=== PATIENT | female | born 1940 | race Caucasian/White ===

== ENCOUNTER 2016-06-14 06:38 | Day surgery (SDC) | payer MEDICARE ==
[~2016-06-14] VITALS: Ht 167.6 cm; Wt 91.6 kg
[~2016-06-14 06:38] MED LIST: ASPI-973 PO; CARI350T PO; CeFAZolin 2 Gm/50 mL D5W IV Premix IV ONE; HYDR-3825 PO; METO-272 PO; MIRA50TA PO; MULT-1018 PO; NC8176 PO; SIMV40TA5 PO; TROS60CA4 PO; ZLP10T PO
[2016-06-14] MEDS ORDERED: fentaNYL-PF 50 mCg/mL 2 mL Inj ONE (06:39)
[2016-06-14] MEDS ORDERED: Ketamine 10 mg/mL 20 mL Inj ONE (06:39)
[2016-06-14 07:02] VITALS: BP 120/100; PULSE 78; RESP 18; O2SAT 95
[2016-06-14 07:28] VITALS: BP 118/71
[2016-06-14] MEDS: Lactated Ringer's 1,000 ML IV SCH ×2 (07:29→08:45)
[2016-06-14] MEDS ORDERED: Lactated Ringer's 500 ML IV PRN (08:14)
[2016-06-14] MEDS ORDERED: Lactated Ringer's 1,000 ML IV SCH (08:14)
--- NOTE | 2016-06-14 08:14 | PCM.HPANE ---
Patient Data Surgeon Admitting Provider: Attending Provider:Cortney Nieves MD Primary Care Physician:Veronica Arshad Other Provider:Anat Hinson Anesthesia Reason for Visit Urgency Of Urination Ht/WT & BMI Height (Feet): 5 Height (Inches): 6 Weight (Kilograms): 91.6 Body Mass Index 32.00 Allergies Coded Allergies: cyclobenzaprine (Verified Allergy, Unknown, UNKNOWN, 02/17/16) doxycycline (Verified Allergy, Unknown, UNKNOWN, 02/17/16) Past Anesthesia History Anesthesia History: Denies:: Abnormal Airway, Anesthesia Reactions, Difficult Intubation, Fam Anesthesia Reaction, Malignant Hyperthermia Diabetes History Hx Diabetes?: No MRSA MRSA: Yes (past hx of) Medications Blood Thinner: Aspirin Hypertension Medication: Yes Home Meds Incl Beta Linette: Yes Date Beta Linette Taken: Jun 14, 2016 Time Beta Linette Taken: 0600 Reported Medications Trospium Chloride ER 60 Mg Cap.er.24h60 Mg PO DAILY 06/09/16 Multivitamin (Multi Vitamin Daily)1 Each Tablet1 Each PO DAILY 30 Days Ref 0 03/31/16 Hydrocodone-Acetaminophen 7.5-325 mg 1 Each Tablet1 Tablet PO Q6H PRN For Pain Ref 0 03/24/16 Mirabegron ER (Myrbetriq)50 Mg Zybqnu56 Mg PO DAILY 02/17/16 Carisoprodol (Soma)350 Mg Ocohcz617 Mg PO QID 02/16/16 Simvastatin 40 Mg Ysjchv05 Mg PO DAILY 30 Days Ref 0 02/16/16 Metoprolol Succinate ER 50 Mg Tab.er.24h50 Mg PO BID Ref 0 TAKES 50MG IN AM; 25MG IN PM 02/16/16 Benazepril 10 Mg Ghdkku36 Mg PO DAILY 02/16/16 Aspirin 81 Mg Pilhob77 Mg PO DAILY Ref 0 02/16/16 Zolpidem (Ambien)10 Mg Rzusot71 Mg PO HS PRN For Insomnia Ref 0 02/16/16 Discontinued Reported Medications Fesoterodine ER (Toviaz)4 Mg Tablet4 Mg PO DAILY 03/31/16 History History of ENT Problems?: Yes HEENT History: Positive for:: Cataracts (R eye) Denies:: Abnormal Airway Difficult Intubation Dysphagia Sinus Problem Hx of Heart Problems?: Yes Cardiovascular History: Positive for:: Hypertension Peripheral Vascular (lower extremity) Denies:: AICD Chest Pain Congestive Heart Failure Edema Heart Murmur Irregular Heartbeat Pacemaker Thrombophlebitis Valvular Heart Disease Hx of Respiratory Problem?: No Respiratory History: Denies:: Asthma COPD Dyspnea Emphysema Oxygen Administration Pneumonia Tuberculosis Use of C-PAP Machine Use of Inhalers / NEBS Hx Neurologic Problems?: Yes Neurological History: Positive for:: Dizziness Denies:: CVA Headaches Multiple Sclerosis Parkinson's Disease Seizures TIA Hx of GI Problems?: Yes Gastrointestinal History: Positive for:: Cirrhosis Gall Bladder Disease (hx biliary colic) Denies:: Gastroesphageal Reflux Hepatitis Hx of Problems?: Yes Genitourinary History: Denies:: HX of Hemodialysis Kidney Stones Urinary Tract Infection (past hx of- recent UA clear) HX of Peritoneal Dialysis: No Other Pertinent History: Female Hx: Denies:: Currently Endometriosis Pelvic Inflammatory Problems with Breasts? Skin History: Denies:: History Skin Disorders? Pressure Ulcers Hx Musculoskeletal Problems?: Yes Musculoskeletal History: Positive for:: Back Injury (multiple back surgeries, scoliosis) Joint Replacement (right knee) Musculoskeletal Trauma (recent surgery 03/2016 for left hammertoe) Osteoarthritis Hx of Psycho/Social Problems?: Yes Psycho Social History: Positive for:: Anxiety Hx Depression (hx of) Denies:: Bipolar Disorder Suicide Attempt Hx Surgeries?: Yes (multiple back, total knee, appe, hammertoe) Hx Any Other Health Problems?: Yes Other History: Positive for:: Cancer (BCC facial) Hospitalization (Many) Denies:: Endocrine Disease Thyroid Disease History Blood Transfusions: Denies:: Blood Transfuse Reaction Blood Transfusions Hx Diabetes: No Hx Alcohol Use: YesAlcoholic Drinks Per Day: two drinks dailyHx Substance Use : No Smoking Status: Current Every Day Smoker Have You Smoked inLast 12 mo: No Stop/Bang S-Snoring: Do You Snore Loudly: No T-Tired: feel tired, fatigued: Yes O-Obsered: Observed not breath: No P-Blood Pressure: treated: Yes B- Body Mass Index > 35 kg/m2: No A- Age over 50: Yes N- Neck Large Circumference: No G- Gender Male: No CHING Total Score: 3 CHING Risk Assessment: High Risk, =/>3 Yes CHING Category 4 OutPt Procedure: Yes Risk Assessment Category Category 1A: Patient has history of documented sleep apnea, and HAS NOT received any narcotic, sedative or anesthesia administration during this stay. Category 1B: Patient has history of documented sleep apnea, and HAS received any narcotic , sedative or anesthesia administration during this stay Category 2: Patient has SUSPECTED Obstructive Sleep Apnea, and HAS received any narcotic , sedative or anesthesia administration during this stay. Category 3: Patient has SUSPECTED Obstructive Sleep Apnea and HAS NOT received narcotic, sedative or anesthesia administration during this stay. Category 4: Outpatient in Procedural Areas with known sleep apnea or who screen positive for High Risk via the STOP/BANG questionnaire. Exam Exam Vital Signs Vital Signs Date Time Temp Pulse Resp B/P Pulse Ox O2 Delivery O2 Flow Rate FiO2 06/14/16 07:28 118/71 06/14/16 07:02 36.5 78 18 120/100 95 Room Air General Appearance: Alert, Oriented X3, Cooperative, No Acute Distress HEENT/AIRWAY: MP 2 Lungs: Clear to Auscultation, Normal Air Movement Heart: Exam Unremarkable, Regular Rate/Rhythm, No Murmurs/Rubs/Gallops Meds/Labs/Diagnostics Admission Meds Current Medications Lactated Ringer's (Lr) 1,000 ml @ 120 mls/hr Q8H20M IV Last administered on 07:29; Start 06/14/16 at 05:00; Stop 06/14/16 at 13:19 Plan Impression Patient chart reviewed, patient interviewed and anesthestic plan with risks, benefits, and alternatives discussed, and informed consent obtained. NPO Status: 06/13 ASA Physical Status: ASA2 Mod Systemic Disease Anesthetic Plan: MAC Bene/Risks/Altern/Consents: Yes HP Complete Prior to Induction: Yes Justin Armendariz MD Jun 14, 2016 08:14
[2016-06-14] MEDS ORDERED: fentaNYL-PF 50 mCg/mL 2 mL Inj IVPUSH PRN (08:15)
[2016-06-14] MEDS ORDERED: EPHEDrine Sulfate 50 mg/mL Inj IVPUSH PRN (08:15)
[2016-06-14] MEDS ORDERED: HYDROmorphone 1 mg/mL Inj IVPUSH PRN (08:15)
[2016-06-14] MEDS ORDERED: Ondansetron 2 mg/mL 2 mL Inj IVPUSH PRN (08:15)
[2016-06-14] MEDS ORDERED: Dexamethasone 4 mg/mL Inj IVPUSH PRN (08:15)
[2016-06-14] MEDS ORDERED: Phenylephrine 10,000 mCg/mL Inj IVPUSH PRN (08:15)
[2016-06-14] MEDS ORDERED: MetoCLOpramide 5 mg/mL 2 mL Inj IVPUSH PRN (08:15)
[2016-06-14] MEDS ORDERED: Bupivacaine-MPF 0.5% W/EPI 30 mL Inj INFILTRATE ONE (08:44)
[2016-06-14] MEDS ORDERED: Vancomycin 1,000 mg Inj IRRIGATION ONE (08:45)
[2016-06-14] MEDS ORDERED: Gentamicin 40 mg/mL 2 mL Inj IRRIGATION ONE (08:45)
[2016-06-14 09:32] VITALS: BP 119/50; PULSE 74; RESP 16; O2SAT 95
[2016-06-14 09:49] VITALS: BP 107/81; PULSE 74; RESP 16; O2SAT 96
[2016-06-14] MEDS ORDERED: HYDROcodone-APAP 5-325 mg Tablet PO PRN (10:50)
[2016-06-14] MEDS ORDERED: Ondansetron 8 mg ODT Tablet PO PRN (10:50)
--- NOTE | 2016-06-14 12:29 | PCM.ANEP1 ---
Post Anesthesia Phase 1 PACU Phase 1 Assessment Vital Signs Vital Signs Date Time Temp Pulse Resp B/P Pulse Ox O2 Delivery O2 Flow Rate FiO2 06/14/16 09:49 74 16 107/81 96 Room Air 06/14/16 09:32 37.0 74 16 119/50 95 Room Air 06/14/16 07:28 118/71 06/14/16 07:02 36.5 78 18 120/100 95 Room Air Anesthetic Administered: MAC Level of Alertness: Awake, talking EWING's with Equal Strength: Yes Pain: No Nausea or Vomiting: No Oxygen Delivery: Nasal Cannula Lungs: Clear to Auscultation, Normal Air Movement Dermatome Level: Full Sensation Justin Armendariz MD Jun 14, 2016 12:29
--- NOTE | 2016-06-14 12:31 | PCM.ANEP2 ---
Post Anesthesia Evaluation ASA/CMS Post Anesthesia VS in Patient's Normal Range?: Yes Resp Stable; Airway Patent?: Yes CV Function & Hydration Stable: Yes Mental Status Recovered?: Yes Pain control Satisfactory?: Yes N/V Control Satisfactory?: Yes Justin Armendariz MD Jun 14, 2016 12:31
--- NOTE | 2016-06-14 23:19 | OP ---
[address] [address] OPERATIVE REPORT PATIENT: DHAVAL RAMOS : 1940 MR#: [id number] ADMIT: 06/14/2016 JOB ID: [id number] DATE OF SURGERY: 06/14/2016 SURGEON: Cortney Nieves MD PROCEDURE: Stage 1 InterStim implant to include transforaminal placement of quadripolar neuroelectrode, sacral and fluoroscopy imaging and guidance. ANESTHESIA: Local with monitored anesthesia care and IV sedation. PREOPERATIVE DIAGNOSIS(ES): Intractable urinary urgency, frequency, urge incontinence. POSTOPERATIVE DIAGNOSIS(ES): Intractable urinary urgency, frequency, urge incontinence. INDICATIONS: Patient is a 75-year-old woman with a long, complicated urinary history including intractable incontinence, urgency, frequency, urge incontinence failing numerous conservative measures and electing trial of sacral nerve modulation for her problems. PROCEDURE IN DETAIL: Appropriate informed consent was obtained, the patient was brought to the operating room. She received IV antibiotics prior to onset of procedure. She was made comfortable in the prone position. All pressure points carefully padded. Cleaned, prepped, and draped usual sterile fashion. Fluoroscope was brought in. Bony landmarks were identified. We used a half/half mixture of lidocaine/Marcaine for local anesthesia along with IV sedation for anesthesia. The finder needle was used to traverse the right-sided S3 sacral foramen. We had excellent responses with Jamie and toe indicating an S3. This finder needle was converted over to obturator introducer which allow us to placed a quadripolar electrode. Once the tines were deployed, we had good responses below the level of 1 in all four electrodes with toe and Jamie. The access sheath was removed. We created a pocket on the left side per patient's request and out below the iliac crest, again sharply and bluntly with electrocautery and local anesthesia. The distal end of the lead was tunneled into the pocket. We made our connections to the temporary extension wire and this was tunneled out contralaterally. We went through the wounds copiously with antibiotic solution and closed the wounds in layers, a layer of 2-0 Vicryl suture, layer of 4-0 Monocryl and then benzoin and Steri-Strips. Final images were taken of the lead in PA and lateral position. The patient tolerated the procedure well, was awakened, and taken back to the one-day surgery area.
== END 2016-06-14 23:59 | disposition home or self-care (01) ==
LOC: SAS 06:38
PROVIDERS: ATTEND Urology
DX: R39.15 Urgency of urination (principal); F17.210 Nicotine dependence, cigarettes, uncomplicated; I10 Essential (primary) hypertension; E78.5 Hyperlipidemia, unspecified; E66.9 Obesity, unspecified; K74.60 Unspecified cirrhosis of liver; F32.9 Major depressive disorder, single episode, unspecified; Z86.14 Personal history of Methicillin resistant Staphylococcus aureus infection; Z79.82 Long term (current) use of aspirin; Z87.440 Personal history of urinary (tract) infections; Z68.32 Body mass index [BMI] 32.0-32.9, adult; Z87.442 Personal history of urinary calculi; Z85.828 Personal history of other malignant neoplasm of skin
CPT/HCPCS: 64581; 76000; C1778; J0690; J1580; J2250; J3370; J7120

== ENCOUNTER 2016-06-23 05:38 | Day surgery (SDC) | payer MEDICARE ==
[~2016-06-23] VITALS: Ht 167.6 cm; Wt 90.4 kg
[~2016-06-23 05:38] MED LIST changes: -CeFAZolin 2 Gm/50 mL D5W IV Premix IV ONE
[2016-06-23] MEDS ORDERED: Ondansetron 2 mg/mL 2 mL Inj ONE (05:39)
[2016-06-23] MEDS ORDERED: Ketamine 10 mg/mL 20 mL Inj ONE (05:39)
[2016-06-23] MEDS ORDERED: Dexamethasone 4 mg/mL Inj ONE (05:39)
[2016-06-23] MEDS ORDERED: fentaNYL-PF 50 mCg/mL 2 mL Inj ONE (05:39)
[2016-06-23] MEDS: Lactated Ringer's 1,000 ML IV SCH ×2 (05:42→07:21)
[2016-06-23] MEDS ORDERED: CeFAZolin 2 Gm/50 mL D5W IV Premix IV ONE (06:00)
[2016-06-23 06:04] VITALS: BP 140/74; PULSE 80; RESP 17; O2SAT 95
[2016-06-23] MEDS ORDERED: Gentamicin 40 mg/mL 2 mL Inj IRRIGATION ONE (07:21)
[2016-06-23] MEDS ORDERED: Vancomycin 1,000 mg Inj IRRIGATION ONE (07:21)
[2016-06-23] MEDS ORDERED: Bupivacaine-MPF 0.5% W/EPI 30 mL Inj INFILTRATE ONE (07:21)
[2016-06-23] MEDS ORDERED: Lidocaine 1% 50 mL Inj INFILTRATE ONE (07:21)
[2016-06-23] MEDS ORDERED: Lactated Ringer's 1,000 ML IV SCH (07:46)
[2016-06-23] MEDS ORDERED: Lactated Ringer's 500 ML IV PRN (07:46)
--- NOTE | 2016-06-23 07:46 | PCM.HPANE ---
Patient Data Surgeon Admitting Provider: Attending Provider:Cortney Nieves MD Primary Care Physician:Veronica Arshad Other Provider:Anat Hinson Anesthesia Reason for Visit Urgency Of Urination Ht/WT & BMI Height (Feet): 5 Height (Inches): 6 Weight (Kilograms): 90.4 Body Mass Index 32.00 Allergies Coded Allergies: cyclobenzaprine (Verified Allergy, Unknown, UNKNOWN, 02/17/16) doxycycline (Verified Allergy, Unknown, UNKNOWN, 02/17/16) Past Anesthesia History Anesthesia History: Denies:: Abnormal Airway, Anesthesia Reactions, Difficult Intubation, Fam Anesthesia Reaction, Malignant Hyperthermia Diabetes History Hx Diabetes?: No MRSA MRSA: Yes (past hx of) Medications Blood Thinner: Aspirin Hypertension Medication: Yes Home Meds Incl Beta Linette: Yes Date Beta Linette Taken: Jun 23, 2016 Time Beta Linette Taken: 0500 Reported Medications Trospium Chloride ER 60 Mg Cap.er.24h60 Mg PO DAILY 06/09/16 Multivitamin (Multi Vitamin Daily)1 Each Tablet1 Each PO DAILY 30 Days Ref 0 03/31/16 Hydrocodone-Acetaminophen 7.5-325 mg 1 Each Tablet1 Tablet PO Q6H PRN For Pain Ref 0 03/24/16 Mirabegron ER (Myrbetriq)50 Mg Gtzzju42 Mg PO DAILY 02/17/16 Carisoprodol (Soma)350 Mg Qlsrdv937 Mg PO QID 02/16/16 Simvastatin 40 Mg Cdrsey70 Mg PO DAILY 30 Days Ref 0 02/16/16 Metoprolol Succinate ER 50 Mg Tab.er.24h50 Mg PO BID Ref 0 TAKES 50MG IN AM; 25MG IN PM 02/16/16 Benazepril 10 Mg Oseyoa53 Mg PO DAILY 02/16/16 Aspirin 81 Mg Cmnmga02 Mg PO DAILY Ref 0 02/16/16 Zolpidem (Ambien)10 Mg Iaqfoz98 Mg PO HS PRN For Insomnia Ref 0 02/16/16 History History of ENT Problems?: Yes HEENT History: Positive for:: Cataracts (R eye) Denies:: Abnormal Airway Difficult Intubation Dysphagia Sinus Problem Hx of Heart Problems?: Yes Cardiovascular History: Positive for:: Hypertension Denies:: AICD Chest Pain Congestive Heart Failure Edema Heart Murmur Irregular Heartbeat Pacemaker Thrombophlebitis Valvular Heart Disease Hx of Respiratory Problem?: No Respiratory History: Denies:: Asthma COPD Dyspnea Emphysema Oxygen Administration Pneumonia Tuberculosis Use of C-PAP Machine Hx Neurologic Problems?: Yes Neurological History: Positive for:: Dizziness Denies:: CVA Headaches Multiple Sclerosis Parkinson's Disease Seizures Hx of GI Problems?: Yes Gastrointestinal History: Positive for:: Cirrhosis Denies:: Gastroesphageal Reflux Hepatitis Hx of Problems?: Yes Genitourinary History: Denies:: HX of Hemodialysis Kidney Stones Urinary Tract Infection (past hx of- recent UA clear) HX of Peritoneal Dialysis: No Other Pertinent History: stage 1 interstim done 06/14/16 Female Hx: Denies:: Currently Endometriosis Pelvic Inflammatory Problems with Breasts? Skin History: Denies:: History Skin Disorders? Pressure Ulcers Hx Musculoskeletal Problems?: Yes Musculoskeletal History: Positive for:: Back Injury (multiple back surgeries, scoliosis) Joint Replacement (right knee) Musculoskeletal Trauma (recent surgery 03/2016 for left hammertoe) Hx of Psycho/Social Problems?: Yes Psycho Social History: Positive for:: Anxiety Hx Depression (hx of) Denies:: Bipolar Disorder Suicide Attempt Hx Surgeries?: Yes (multiple back, total knee, appe, hammertoe, stage 1 interstim) Hx Any Other Health Problems?: Yes Other History: Positive for:: Cancer (BCC facial) Hospitalization (Many) Denies:: Endocrine Disease Thyroid Disease History Blood Transfusions: Denies:: Blood Transfuse Reaction Blood Transfusions Hx Diabetes: No Hx Alcohol Use: YesHx Substance Use: No Smoking Status: Current Every Day Smoker Have You Smoked inLast 12 mo: No Stop/Bang S-Snoring: Do You Snore Loudly: No T-Tired: feel tired, fatigued: Yes O-Obsered: Observed not breath: No P-Blood Pressure: treated: Yes B- Body Mass Index > 35 kg/m2: No A- Age over 50: Yes N- Neck Large Circumference: No G- Gender Male: No CHING Total Score: 3 CHING Risk Assessment: High Risk, =/>3 Yes CHING Category 4 OutPt Procedure: Yes Risk Assessment Category Category 1A: Patient has history of documented sleep apnea, and HAS NOT received any narcotic, sedative or anesthesia administration during this stay. Category 1B: Patient has history of documented sleep apnea, and HAS received any narcotic , sedative or anesthesia administration during this stay Category 2: Patient has SUSPECTED Obstructive Sleep Apnea, and HAS received any narcotic , sedative or anesthesia administration during this stay. Category 3: Patient has SUSPECTED Obstructive Sleep Apnea and HAS NOT received narcotic, sedative or anesthesia administration during this stay. Category 4: Outpatient in Procedural Areas with known sleep apnea or who screen positive for High Risk via the STOP/BANG questionnaire. Exam Exam Vital Signs Vital Signs Date Time Temp Pulse Resp B/P Pulse Ox O2 Delivery O2 Flow Rate FiO2 06/23/16 06:04 80 17 140/74 95 Room Air General Appearance: Alert, Oriented X3, Cooperative, No Acute Distress HEENT/AIRWAY: MP 2 Lungs: Clear to Auscultation, Normal Air Movement Heart: Exam Unremarkable, Regular Rate/Rhythm, No Murmurs/Rubs/Gallops Meds/Labs/Diagnostics Admission Meds Current Medications Cefazolin Sodium/ Dextrose 2 gm/ Premix 50 ml @ 100 mls/hr PREOP ONCE IV Last administered on 06/23/16 07:21; Start 06/23/16 at 06:00; Stop 06/23/16 at 06:29; Status DC Lactated Ringer's (Lr) 1,000 ml @ 120 mls/hr Q8H20M IV Last administered on 07:21; Start 06/23/16 at 05:00; Stop 06/23/16 at 13:19 Bupivacaine HCl/ Epinephrine Bitart (Sensorcaine-MPF 0.5% W/EPI Inj) 30 ml STK- MED ONCE INFILTRATE Last administered on 06/23/16 07:21; Start 06/23/16 at 07: 21; Stop 06/23/16 at 07:41; Status DC Lidocaine HCl (Xylocaine 1% Inj) 30 ml STK-MED ONCE INFILTRATE Last administered on 06/23/16 07:21; Start 06/23/16 at 07:21; Stop 06/23/16 at 07:41 ; Status DC Gentamicin Sulfate (Gentamicin Inj) 80 mg STK-MED ONCE IRRIGATION Last administered on 06/23/16 07:21; Start 06/23/16 at 07:21; Stop 06/23/16 at 07:41 ; Status DC Vancomycin HCl (Vancocin Inj) 1,000 mg STK-MED ONCE IRRIGATION Last administered on 06/23/16 07:21; Start 06/23/16 at 07:21; Stop 06/23/16 at 07:41 ; Status DC Plan Impression Patient chart reviewed, patient interviewed and anesthestic plan with risks, benefits, and alternatives discussed, and informed consent obtained. NPO Status: 06/22/16 ASA Physical Status: ASA2 Mod Systemic Disease Anesthetic Plan: MAC Bene/Risks/Altern/Consents: Yes HP Complete Prior to Induction: Yes Justin Armendariz MD Jun 23, 2016 07:46
[2016-06-23] MEDS ORDERED: fentaNYL-PF 50 mCg/mL 2 mL Inj IVPUSH PRN (07:50)
[2016-06-23] MEDS ORDERED: Ondansetron 2 mg/mL 2 mL Inj IVPUSH PRN (07:50)
[2016-06-23] MEDS ORDERED: HYDROmorphone 1 mg/mL Inj IVPUSH PRN (07:50)
[2016-06-23] MEDS ORDERED: MetoCLOpramide 5 mg/mL 2 mL Inj IVPUSH PRN (07:50)
[2016-06-23] MEDS ORDERED: EPHEDrine Sulfate 50 mg/mL Inj IVPUSH PRN (07:50)
[2016-06-23] MEDS ORDERED: Dexamethasone 4 mg/mL Inj IVPUSH PRN (07:50)
[2016-06-23] MEDS ORDERED: Phenylephrine 10,000 mCg/mL Inj IVPUSH PRN (07:50)
[2016-06-23] MEDS ORDERED: HYDROcodone-APAP 5-325 mg Tablet PO PRN (08:05)
[2016-06-23] MEDS ORDERED: Ondansetron 8 mg ODT Tablet PO PRN (08:05)
[2016-06-23 08:07] VITALS: BP 116/59; PULSE 81; RESP 16; O2SAT 99
[2016-06-23 08:20] VITALS: BP 114/65; PULSE 76; RESP 16; O2SAT 97
[2016-06-23 08:40] VITALS: BP 116/71; PULSE 76; RESP 14; O2SAT 100
--- NOTE | 2016-06-23 11:29 | PCM.ANEP1 ---
Post Anesthesia Phase 1 PACU Phase 1 Assessment Vital Signs Vital Signs Date Time Temp Pulse Resp B/P Pulse Ox O2 Delivery O2 Flow Rate FiO2 06/23/16 08:40 76 14 116/71 100 Room Air 06/23/16 08:20 76 16 114/65 97 Room Air 06/23/16 08:07 36.7 81 16 116/59 99 Room Air 06/23/16 06:04 80 17 140/74 95 Room Air Anesthetic Administered: MAC Level of Alertness: Awake, talking EWING's with Equal Strength: Yes Pain: No Nausea or Vomiting: No Oxygen Delivery: Nasal Cannula Lungs: Clear to Auscultation, Normal Air Movement Dermatome Level: Full Sensation Justin Armendariz MD Jun 23, 2016 11:29
--- NOTE | 2016-06-23 11:29 | PCM.ANEP2 ---
Post Anesthesia Evaluation ASA/CMS Post Anesthesia VS in Patient's Normal Range?: Yes Resp Stable; Airway Patent?: Yes CV Function & Hydration Stable: Yes Mental Status Recovered?: Yes Pain control Satisfactory?: Yes N/V Control Satisfactory?: Yes Justin Armendariz MD Jun 23, 2016 11:29
--- NOTE | 2016-06-24 05:42 | OP ---
[address] [address] OPERATIVE REPORT PATIENT: DHAVAL RAMOS : 1940 MR#: [id number] ADMIT: 06/23/2016 JOB ID: [id number] DATE OF SURGERY: 06/23/2016 PROCEDURE NAME: Stage 2 InterStim implant to include IPG implantation and complex initial programming and setup of neurostimulator device. SURGEON: Cortney Nieves MD. ANESTHESIA: Local with monitored anesthesia care. PREOPERATIVE DIAGNOSIS(ES): Intractable urinary urgency, frequency, urge incontinence. POSTOPERATIVE DIAGNOSIS(ES): Intractable urinary urgency, frequency, urge incontinence. INDICATIONS: Patient is a 75-year-old woman with a longstanding history of severe urinary symptoms including urgency, frequency and urge incontinence most bothersome, failing numerous medications, behavioral changes, and conservative measures. Electing trial of InterStim therapy sacral nerve modulation. She underwent right-sided lead placement with a left pocket on June 14, 2016, and had outstanding results and near complete resolution of her urinary incontinence. It was well over a 90% improvement with one small accident during her entire trial instead of soaking numerous large pads per day. Very pleased and wished to proceed. PROCEDURE IN DETAIL: After appropriate informed consent was obtained, patient was brought to the operating room. She received IV Ancef prior to onset of procedure. She was made comfortable in the prone position. All pressure points carefully padded. Cleaned, prepped, and draped in the usual sterile fashion. Half/half mixture of lidocaine and Marcaine was used for local anesthesia. We numbed up the area overlying the left-sided buttock pocket. This was opened up sharply and bluntly with electrocautery to expose the extension wiring and the connection was undone. We cut the extension wire allowing this to fall away from the patient's body. Enlarged the pocket site sharply and bluntly with electrocautery to accept a size Medtronic 2 IPG. The pocket itself was dry. Hemostasis was achieved with electrocautery. The pocket was irrigated out copiously with antibiotic solution of vancomycin and gentamicin solution. We attached the Medtronic II pulse generator. Gentle tug revealed a good connection. A ratcheted screwdriver was used. It fit nicely inside the pocket. It was irrigated further with antibiotic solution and then closed in layers with 2-0 Vicryl, layer of 4-0 Monocryl and a layer of Dermabond. Cosmetic appearance was excellent. Fit was good. Hemostasis was fine. She was taken back to the one-day surgery area. She was awake where the device itself was turned on. Found to be operating within normal parameters. It was set up with initial rate of 14, pulse width of 210. Program zero was set up as 0 negative and 3 positive. Program two, 1 negative and 3 positive. Program three was 2 negative and 0 positive. Program four was 3 negative and 0 positive. She felt the stimulation in expected location, comfortable, low amplitude. NICANOR
== END 2016-06-23 23:59 | disposition home or self-care (01) ==
LOC: SAS 05:38
PROVIDERS: ATTEND Urology
DX: N39.41 Urge incontinence (principal); R35.0 Frequency of micturition; I10 Essential (primary) hypertension; R42 Dizziness and giddiness; F41.9 Anxiety disorder, unspecified; K74.60 Unspecified cirrhosis of liver; F17.210 Nicotine dependence, cigarettes, uncomplicated; Z79.82 Long term (current) use of aspirin; Z79.899 Other long term (current) drug therapy

== ENCOUNTER 2016-11-30 05:51 | Inpatient (IN) | payer MEDICARE ==
[2016-11-30] VITALS (17 sets, daily range): BP systolic 111–148; BP diastolic 49–87; PULSE 60–91; RESP 11–20; O2SAT 94–100
[~2016-11-30] VITALS: Ht 165.1 cm; Wt 92.5 kg
[~2016-11-30 05:51] MED LIST changes: -ASPI-973 PO; +ATOR20TA PO; +BENA20TA PO; +CILO50TA PO; +CLOB15CR3 TOP; +CeFAZolin Inj 3 GM in IV Premix IV ONE; +DIPH1TAB PO; -HYDR-3825 PO; +LEVO100T6 PO; +Levofloxacin 500 mg/100 mL D5W IV ONE; -MULT-1018 PO; -NC8176 PO; -SIMV40TA5 PO; -TROS60CA4 PO; +VENL100T3 PO
[2016-11-30] MEDS ORDERED: levoFLOXacin 500 mg/100 mL D5W Premix IV ONE (06:15)
[2016-11-30] MEDS ORDERED: CeFAZolin Inj 3 Gm/ D5W 50 mL Bag IV ONE (06:15)
[2016-11-30] MEDS: Lactated Ringer's 1,000 ML IV SCH ×3 (06:23→14:45)
[2016-11-30] MEDS ORDERED: ASPI-973 PO (07:04)
--- NOTE | 2016-11-30 07:42 | PCM.HPANE ---
Patient Data Surgeon Admitting Provider: Attending Provider:Duglas Elder MD Primary Care Physician:Veronica Arshad Other Provider:Anat Hinson Anesthesia Reason for Visit Left Renal Mass Ht/WT & BMI Height (Feet): 5 Height (Inches): 5 Weight (Kilograms): 90.4 Body Mass Index 33.00 Allergies Coded Allergies: cyclobenzaprine (Verified Allergy, Unknown, UNKNOWN, 02/17/16) doxycycline (Verified Allergy, Unknown, UNKNOWN, 02/17/16) Past Anesthesia History Anesthesia History: Denies:: Abnormal Airway, Anesthesia Reactions, Difficult Intubation, Fam Anesthesia Reaction, Malignant Hyperthermia Diabetes History Hx Diabetes?: No MRSA MRSA: Yes (past hx of) Medications Blood Thinner: Aspirin Hypertension Medication: Yes Home Meds Incl Beta Linette: Yes (METOPROLOL) Date Beta Linette Taken: Nov 29, 2016 Time Beta Linette Taken: 0700 Previous Beta Linette Dose >24: Give Dose Perioperatively Reported Medications Aspirin 81 Mg Btoxps49 Mg PO DAILY Ref 0 11/30/16 Clobetasol Propionate/Emoll (Clobetasol Emollient 0.05% Crm)15 Gm Cream..g.1 Appl TOP BID #1 TUBE 11/29/16 Diphenoxylate/Atropine 2.5-0.025 mg (Lomotil 2.5-0.025 mg)1 Each Tablet1 Tablet PO PRN For Diarrhea or Loose Stool 11/29/16 Cilostazol 50 Mg Zybodc12 Mg PO BID 11/29/16 Levothyroxine 100 Mcg Ueqfhw843 Mcg PO DAILY For Thyroid Replacement Ref 0 11/29/16 Carisoprodol (Soma)350 Mg Tablet2 Tab PO BID 11/29/16 Mirabegron ER (Myrbetriq)50 Mg Bhobns73 Mg PO DAILY 11/29/16 Metoprolol Succinate ER 50 Mg Tab.er.24h25 Mg PO QPM Ref 0 11/29/16 Metoprolol Succinate ER 50 Mg Tab.er.24h50 Mg PO QAM Ref 0 11/29/16 Atorvastatin (Lipitor)20 Mg Gquveu10 Mg PO DAILY Ref 0 11/29/16 Benazepril 20 Mg Lcscru41 Mg PO DAILY 11/29/16 Zolpidem (Ambien)10 Mg Cjznql99 Mg PO HS PRN For Insomnia Ref 0 11/29/16 Discontinued Reported Medications Venlafaxine 100 Mg Tnufpr433 Mg PO DAILY Ref 0 11/29/16 Aspirin 81 Mg Dpawkd10 Mg PO DAILY Ref 0 11/29/16 Trospium Chloride ER 60 Mg Cap.er.24h60 Mg PO DAILY 06/09/16 Multivitamin (Multi Vitamin Daily)1 Each Tablet1 Each PO DAILY 30 Days Ref 0 03/31/16 Hydrocodone-Acetaminophen 7.5-325 mg 1 Each Tablet1 Tablet PO Q6H PRN For Pain Ref 0 03/24/16 Mirabegron ER (Myrbetriq)50 Mg Cwaqtb06 Mg PO DAILY 02/17/16 Carisoprodol (Soma)350 Mg Zwwtfd632 Mg PO QID 02/16/16 Simvastatin 40 Mg Qfxvsq04 Mg PO DAILY 30 Days Ref 0 02/16/16 Metoprolol Succinate ER 50 Mg Tab.er.24h50 Mg PO BID Ref 0 TAKES 50MG IN AM; 25MG IN PM 02/16/16 Benazepril 10 Mg Mqflwy35 Mg PO DAILY 02/16/16 Aspirin 81 Mg Hmkfvv71 Mg PO DAILY Ref 0 02/16/16 Zolpidem (Ambien)10 Mg Duttjh36 Mg PO HS PRN For Insomnia Ref 0 02/16/16 History History of ENT Problems?: Yes HEENT History: Positive for:: Cataracts (R eye) Denies:: Abnormal Airway Difficult Intubation Dysphagia Glaucoma Hearing Problem Sinus Problem TMJ Denture Type: None Teeth Condition: Within Normal Limits Hx of Heart Problems?: Yes Cardiovascular History: Positive for:: Hypertension Peripheral Vascular (left femoral artery occlusion ) Denies:: AICD Abdominal Aortic Aneurism Cardiac Surgery Chest Pain Congestive Heart Failure Edema Heart Murmur Irregular Heartbeat Pacemaker Thrombophlebitis Valvular Heart Disease Hx of Respiratory Problem?: No Respiratory History: Denies:: Asthma COPD Dyspnea Emphysema Oxygen Administration Pneumonia Tuberculosis Use of C-PAP Machine Use of Inhalers / NEBS Other Resp Pertinent History: longtime smoker Hx Neurologic Problems?: No Neurological History: Denies:: CVA Dizziness Headaches Multiple Sclerosis Parkinson's Disease Seizures Hx of GI Problems?: Yes Hx of Problems?: Yes Genitourinary History: Denies:: HX of Hemodialysis Kidney Stones Urinary Tract Infection (past hx of-) HX of Peritoneal Dialysis: No Other Pertinent History: left renal mass current admission problem Female Hx: Denies:: Currently (hysterectomy) Endometriosis Pelvic Inflammatory Problems with Breasts? Skin History: Positive for:: History Skin Disorders? (hx of- takes clobetasol cream, ) Denies:: Pressure Ulcers Hx Musculoskeletal Problems?: Yes Musculoskeletal History: Positive for:: Back Injury (multiple back surgeries, scoliosis- chronic low back) Degenerative Joint Joint Replacement (right knee) Osteoarthritis Denies:: Musculoskeletal Trauma Myasthenia Gravis Systemic Lupus Hx of Psycho/Social Problems?: Yes Psycho Social History: Positive for:: Anxiety Hx Depression (hx of) Denies:: Bipolar Disorder Suicide Attempt Hx Surgeries?: Yes (multiple back, total knee, appe, hammertoe, stage 1 interstim) Hx Any Other Health Problems?: Yes Other History: Positive for:: Cancer (BCC facial) Hospitalization Denies:: Endocrine Disease Thyroid Disease History Blood Transfusions: Positive for:: Accept Blood Products? Denies:: Blood Transfuse Reaction Blood Transfusions Hx Diabetes: No Hx Alcohol Use: YesAlcoholic Drinks Per Day: 2 drinks eveningHx Substance Use : No Smoking Status: Current Every Day Smoker Have You Smoked inLast 12 mo: Yes (10 cig daily) Stop/Bang S-Snoring: Do You Snore Loudly: No T-Tired: feel tired, fatigued: Yes O-Obsered: Observed not breath: No P-Blood Pressure: treated: Yes B- Body Mass Index > 35 kg/m2: No A- Age over 50: Yes N- Neck Large Circumference: No G- Gender Male: No CHING Total Score: 3 CHING Risk Assessment: High Risk, =/>3 Yes Risk Assessment Category Category 1A: Patient has history of documented sleep apnea, and HAS NOT received any narcotic, sedative or anesthesia administration during this stay. Category 1B: Patient has history of documented sleep apnea, and HAS received any narcotic , sedative or anesthesia administration during this stay Category 2: Patient has SUSPECTED Obstructive Sleep Apnea, and HAS received any narcotic , sedative or anesthesia administration during this stay. Category 3: Patient has SUSPECTED Obstructive Sleep Apnea and HAS NOT received narcotic, sedative or anesthesia administration during this stay. Category 4: Outpatient in Procedural Areas with known sleep apnea or who screen positive for High Risk via the STOP/BANG questionnaire. Exam Exam Vital Signs Vital Signs Date Time Temp Pulse Resp B/P Pulse Ox O2 Delivery O2 Flow Rate FiO2 11/30/16 06:37 36.4 87 16 126/73 94 Room Air General Appearance: Alert, Oriented X3, Cooperative, No Acute Distress HEENT/AIRWAY: MP 3 Lungs: Clear to Auscultation, Normal Air Movement Heart: Exam Unremarkable, Regular Rate/Rhythm, No Murmurs/Rubs/Gallops Meds/Labs/Diagnostics Admission Meds Current Medications Lactated Ringer's (Lr) 1,000 ml @ 120 mls/hr Q8H20M IV Last administered on t 06:23; Start 11/30/16 at 05:00; Stop 11/30/16 at 13:19 Plan Impression Patient chart reviewed, patient interviewed and anesthestic plan with risks, benefits, and alternatives discussed, and informed consent obtained. NPO per Anesth. Guidelines: Yes ASA Physical Status: ASA3 Severe Disease Anesthetic Support Modalities: Arterial Line Anesthetic Plan: GA Bene/Risks/Altern/Consents: Yes HP Complete Prior to Induction: Yes Tong Dickinson MD Nov 30, 2016 07:04
[2016-11-30] MEDS ORDERED: Lactated Ringer's 1,000 ML IV SCH (07:48)
[2016-11-30] MEDS ORDERED: Lactated Ringer's 500 ML IV PRN (07:48)
[2016-11-30] MEDS ORDERED: EPHEDrine Sulfate 50 mg/mL Inj IVPUSH PRN (07:50)
[2016-11-30] MEDS ORDERED: Phenylephrine 10,000 mCg/mL Inj IVPUSH PRN (07:50)
[2016-11-30] MEDS ORDERED: Atropine 0.4 mg/mL Inj IVPUSH PRN (07:50)
[2016-11-30] MEDS ORDERED: Labetalol 5 mg/mL 4 mL Inj IV PRN (07:50)
[2016-11-30] MEDS ORDERED: Ondansetron 2 mg/mL 2 mL Inj IVPUSH PRN ×2 (07:50→16:15)
[2016-11-30] MEDS ORDERED: MetoCLOpramide 5 mg/mL 2 mL Inj IVPUSH PRN ×2 (07:50→16:15)
[2016-11-30] MEDS: CeFAZolin 2 Gm/50 mL D5W Duplex Bag IV ONE ×2 (08:24→12:22)
[2016-11-30] MEDS ORDERED: Bupivacaine-MPF 0.5% 30 mL Inj INFILTRATE ONE (09:20)
[2016-11-30 11:07] LABS: APPEARANCE,URINE HAZY (CLEAR,HAZY); COLOR,URINE YELLOW (YELLOW); OCCULT BLOOD,URINE NEGATIVE (NEGATIVE); PH,URINE 6.5 (5.0-8.0); UROBILINOGEN,URINE NORMAL (NORMAL)
--- NOTE | 2016-11-30 13:29 | ABG ---
DateTimeAnalyzed 13:21:01 -_ pH ____7.307 - 7.350 7.450 pCO2 ___49.1__ -mmHg 35.0 45.0 pO2 ___98.9__ -mmHg 69.0 116 HCO3- ___24.5__ -mmol/L 22.0 26.0 ABE ___-1.8__ -mmol/L tHb ___12.3__ -g/dL O2Hb ___94.6__ -% COHb ____2.6__ -% 1.5 MetHb ____0.3__ -% sO2 ___97.5__ -% FIO2 ___50.0__ -% Drawn By anesthesia - Date/Time Notified____ 13:28:00 -_ Oxygen Device 1 VENTILATOR - K+ ____3.9__ -mmol/L tO2 ___16.5__ -Vol%
[2016-11-30] MEDS ORDERED: Lactated Ringer's 1,000 ML IV ONE (14:44)
[2016-11-30] MEDS ORDERED: Bupivacaine-MPF 0.25%/EPI 30 mL Inj INFILTRATE ONE (15:09)
[2016-11-30] MEDS: fentaNYL-PF 50 mCg/mL 2 mL Inj IVPUSH PRN ×3 (15:55→16:08)
--- NOTE | 2016-11-30 16:00 | PCM.SURGPO ---
Immediate Operative Note Date of Surgery: Nov 30, 2016 Pre Operative Diagnosis L renal mass Post Operative Diagnosis L renal mass Procedure L laparoscopic radical nephrectomy (modifier 22) Surgeon and [employer] Surgeon: Duglas Elder MD Assistants: Cortney Nieves MD; Coleen Alvarez Findings No evidence for gross extension of tumor outside of L kidney was seen. L laparoscopic radical nephrectomy (including L adrenalectomy) was performed. Of note, dissection was very difficult secondary to large amount of significant adhesions from prior abdominal surgeries. Complications There were no periprocedural complications identified. Surgical Specimen Removed: Yes Specimen sent to Pathology: Yes Surgical Specimen description: L kidney and L adrenal gland Anesthetic Administered: GA Grafts, Implants: Other (16F Coles catheter to straight drainage) Output, Estimated Blood Loss: 300 Blood Admin during surgery: No Additional information Patient to be transferred to [facility] bed when stable. Duglas Elder MD Nov 30, 2016 16:00
--- NOTE | 2016-11-30 16:17 | PCM.CHPMED ---
Subjective Date of Service: Nov 30, 2016 Primary Physician: Admitting Physician: Primary Care Physician: Veronica Arshad Attending Physician: Duglas Elder MD Chief Complaint: Chief Complaint: Radical Nephrectomy History of Present Illness: 76-year-old female with history hypertension, hypoactive thyroid, chronic UTI, urge incontinence and left renal mass who underwent laparoscopic left nephrectomy and adrenalectomy today (11/30/16). There were no perisurgical complications noted by Dr. Elder. Suggested history of COPD and cirrhosis. Medicine was consulted for medical management while the patient is here in the hospital. The patient has been seen by Dr. Elder for 7 cm mass on the superior pole of the left kidney with no evidence of no metastases as noted on October 26 CT scan. Patient has a history of peripheral vascular disease and smoking, especially wishes to quit smoking as recently as 10/31/16. At that time the patient on Wellbutrin but did not start it. Patient apparently also has a significant history of alcohol use and CT in October suggested cirrhosis. Patient was unable to give history due to somnolence from medications and postop. Patient was transported to PACU in stable condition was currently being transported to the floor. Patient is a 5L of LR. Patient also had a UA which is sent for culture. Blood work pending Review of Systems: Complete review of systems performed; pertinent positives and negatives per HPI. PMH Past Medical History Left renal mass Nicotine dependence HTN Hypothyroidism Scoliosis Basal cell carcinoma Chronic UTI Hyperlipidemia COPD DJD Peripheral artery disease Hx Any Other Health Problems?: YesHx Diabetes: No Surgical History Back surgeries x5 Reports: Hysterectomy, Tonsillectomy Reports: Knee replacement Bladder sling Hysterectomy Laparoscopic appendectomy [facility] left Home Medications Atorvastatin 20 mg tablet daily Benazepril 20 mg Carisoprodol 350 mg tablet Cilostrazol 50 mg tablet Estradiol 1 mg tablet Lomotil 2.5 mg tablet Levothyroxine 100 g tablet Macrodantin 50 mg Myrbetriq 25 mg Metoprolol titrate 25 mg Venlafaxine 150 mg capsule Ambien 10 mg tablet Allergies: Coded Allergies: cyclobenzaprine (Verified Allergy, Unknown, UNKNOWN, 02/17/16) doxycycline (Verified Allergy, Unknown, UNKNOWN, 02/17/16) Family History Family History Father: ; hypertension Mother: Social History Hx Alcohol Use: YesAlcoholic Drinks Per Day: 2 drinks evening Hx Substance Use: NoHx Tobacco Use: Yes (pack/day for 30 years) Smoking Status: Current Every Day Smoker Exam Vital Signs Vital Sign - Last Date Time Temp Pulse Resp B/P Pulse Ox O2 Delivery O2 Flow Rate FiO2 11/30/16 16:09 84 12 127/72 100 Simple Mask 6 11/30/16 15:45 36.2 General: No Acute Distress, Other (somnolent) Eyes: PERRLA, Scleral Anicteric Mouth: Mucous Membranes Dry Chest & Lungs: Chest Wall Normal, Clear to auscultation & percussion Cardiovascular: Exam Unremarkable, Regular Rate/Rhythm Abdomen: Tender, Distended Musculoskeletal: Unremarkable Skin: Other (no rashes) Neurological: Other (somnolent) Lab and Diagnostics X-Rays, CTs and MRIs CT 10/26/2016 1. No change in left superior pole renal cell carcinoma. No evidence of regional teresa metastasis neurovascular invasion. 2. Cholelithiasis. 3. No change in small hepatic hypodensities. Previously described wedge-shaped hypodense focus within the right hepatic lobe posteromedially is less apparent. 4. Findings suggestive of cirrhosis. Dictated by: Julián Horn M.D. on 10/26/2016 at 14:50 12-lead ECG Pending Assessment & Plan Assessment 76-year-old female with multiple comorbidities is being admitted to the [facility] post left nephrectomy for 7 cm left renal mass. Laparoscopic nephrectomy and adrenalectomy of left renal mass; present admission ; ongoing -Patient underwent nephrectomy by Dr. Elder today; no evidence of additional invasion per surgical note -Pain control with JOINT CUTTER MACHINE -Await pathology -EKG and blood work pending -Chest x-ray tomorrow Peripheral vascular disease; present on admission; stable -Hold Cilostazol tonight; restart tomorrow Hypertension; present admission; ongoing -Continue metoprolol; if persistent hypertension consider starting lisinopril Hypothyroidism; present admission; stable -Continued levothyroxine 100 g Nicotine dependence; present admission; ongoing -From what I can tell, the patient is a current smoker -Nicotine patch tomorrow Questionable EtOH abuse; present on admission; ongoing -Difficult to get a sense of alcohol use as patient is somnolent post-op -CT evidence of cirrhosis -Watch for signs of withdrawal and initiate CIWA if present Chronic UTI; present on admission; ongoing -Patient has numerous UTIs due to contractile bladder -UA was sent for culture -Will assess for systemic infection start antibiotics if necessary Hyperlipidemia; stable -Continue home statin COPD; present medicine; stable -Patient has not wheezing, and saturating well on room air -Continue to follow and use duonebs if appropriate DJD -Continue home pain regimen once JOINT CUTTER MACHINE is dc'd Depression/anxiety; present admission; ongoing -Continue venlafaxine Urinary incontinence; stable -Continue Myrbetriq Disposition: Patient be admitted to the [facility] under inpatient status with length of stay greater than 2 minutes due to severity of presentation, duration of treatment, and risk of adverse events. Problems: Pain Evaluation: Adequate Pain Control GI Prophylaxis: H2 nicolas VTE Prophylaxis: Sub-Q Enoxaparin Resuscitation Status: CPR: Attempt Resuscitation Attending Statement I have seen this patient and reviewed the PMH, physical exam, laboratories and diagnostics, assessment and plan, no revisions at this time. Patient was much more awake than reported for me. She was relatively lucid/ coherent I was able to find an EKG from 02/2016 sinus rhythm without no acute ST segment changes. Hospitalist service will continue to follow for medical complications and medical issues. Diet and pain management and medications per urology thank you very much. Tong Garcia DO Nov 30, 2016 16:17 Javier Padron MD Nov 30, 2016 21:05
[2016-11-30] MEDS: HYDROmorphone 1 mg/mL Inj IVPUSH PRN ×5 (16:18→17:06)
[2016-11-30] MEDS ORDERED: Polyethylene Glycol (PEG) 17 Gm Powder PO PRN (16:25)
[2016-11-30] MEDS ORDERED: oxyCODONE-Acetamin 5-325 mg Tablet PO PRN (16:25)
--- NOTE | 2016-11-30 16:32 | PCM.ANEP1 ---
Post Anesthesia PACU Phase 1 Assessment Vital Signs Vital Signs Date Time Temp Pulse Resp B/P Pulse Ox O2 Delivery O2 Flow Rate FiO2 11/30/16 16:26 86 13 135/81 96 Nasal Cannula 3 11/30/16 16:16 81 17 133/65 97 Nasal Cannula 3 11/30/16 16:09 84 12 127/72 100 Simple Mask 6 11/30/16 16:00 77 15 111/65 100 Simple Mask 6 11/30/16 15:55 63 14 112/67 99 Simple Mask 9 11/30/16 15:45 36.2 60 14 130/49 99 Simple Mask 9 Anesthetic Administered: GA Level of Alertness: Awake, talking EWING's with Equal Strength: Yes Pain: No Nausea or Vomiting: No CV Function & Hydration Stable: Yes Airway Device: Endotrachial Tube Oxygen Delivery: Simple Mask Lungs: Clear to Auscultation, Normal Air Movement PACU Phase 2 Assessment Complications: No Follow up Care: N/A Patient Instructions Provided: N/A Tong Dickinson MD Nov 30, 2016 16:31
--- NOTE | 2016-11-30 17:30 | NUR ---
Admission patient arrived to [facility] room 1008 at 1720hrs. assumed care.
[2016-11-30] MEDS ORDERED: Glycopyrrolate 0.2 MG/ML 1mL Inj ONE (17:44)
[2016-11-30] MEDS ORDERED: Ketamine 10 mg/mL 20 mL Inj ONE (17:44)
[2016-11-30] MEDS ORDERED: Ondansetron 2 mg/mL 2 mL Inj ONE (17:44)
[2016-11-30] MEDS ORDERED: Phenylephrine 10,000 mCg/mL Inj ONE (17:44)
[2016-11-30] MEDS ORDERED: Propofol 10 mg/mL 20 mL Inj ONE ×2 (17:44)
[2016-11-30] MEDS ORDERED: Rocuronium 10 mg/mL 5 mL Inj ONE ×2 (17:44)
[2016-11-30] MEDS ORDERED: MeTOProlol 1 mg/mL 5 mL Inj ONE (17:44)
[2016-11-30] MEDS ORDERED: Succinylcholine Chloride 20 mg/mL 5 mL Inj ONE (17:44)
[2016-11-30] MEDS ORDERED: Neostigmine 1 mg/mL 10 mL Inj ONE (17:44)
[2016-11-30] MEDS ORDERED: fentaNYL-PF 50 mCg/mL 2 mL Inj ONE (17:44)
[2016-11-30] MEDS ORDERED: HYDROmorphone 1 mg/mL Inj ONE (17:44)
[2016-11-30] MEDS: 0.9% Sodium Chloride 1,000 ML IV SCH (17:52)
[2016-11-30] MEDS: Morphine PCA 1 mg/mL 30 mL Inj IV PRN (17:52)
[2016-11-30] MEDS: CeFAZolin Inj 2 GM in IV Premix 1 EACH IV SCH (20:36)
[2016-12-01] VITALS (10 sets, daily range): BP systolic 123–131; BP diastolic 72–75; PULSE 99–128; RESP 16–18; O2SAT 91–97
[2016-12-01] MEDS: 0.9% Sodium Chloride 1,000 ML IV SCH ×4 (00:52→19:16)
[2016-12-01] MEDS: CeFAZolin Inj 2 GM in IV Premix 1 EACH IV SCH (00:53)
--- NOTE | 2016-12-01 02:42 | NUR ---
Pain pain well controlled by LEGAL RESEARCH ANALYST when patient awake and remembers quite drowsy and confused on first assess but eventually cleared up
[2016-12-01 05:23] LABS: BASOPHILS % (AUTO) 0.1 % (0-3); EOSINOPHILS % (AUTO) 0.5 % (0-5); MONOCYTES % (AUTO) 12.8 % (4-12); Mean Corpuscular Hemoglobin 32.8 pg (27.0-35.0); Mean Corpuscular Volume 102.2 fL (81-100); NEUTROPHILS % (AUTO) 70.6 % (40-74); Platelet Count 125 bil/L (150-400)
[2016-12-01] MEDS ORDERED: CeFAZolin 2 Gm/50 mL D5W IV Premix IV ONE (06:00)
[2016-12-01 06:15] LABS: Magnesium 1.8 mg/dL (1.6-2.6); Phosphorus 3.1 mg/dL (2.5-4.9)
--- NOTE | 2016-12-01 07:19 | PCM.PNSURG ---
Subjective Date of Service: Dec 01, 2016 Date of Service: Dec 01, 2016 Subjective: Patient reports abdominal incisional pain and chronic back pain (relieved by IV ROLL HAND), tolerating small amount of clears, no nausea or vomiting, has not passed flatus or had a BM yet. no shortness of breath. Patient has not been OOB yet. Objective Vital Sign- Last 8 Hours Date Time Temp Pulse Resp B/P Pulse Ox O2 Delivery O2 Flow Rate FiO2 12/01/16 06:31 18 96 12/01/16 05:24 36.6 99 18 131/72 96 Nasal Cannula 2.00 12/01/16 03:14 18 96 12/01/16 00:32 36.6 103 18 123/75 96 Nasal Cannula 2.00 Intake and Output- Last 8 Hour 12/01/16 Cumulative From/Thru 07:00 11/29/16 10:36 - 12/01/16 06:33 Intake Total 1746 ml 5296 ml Output Total 400 ml 1100 ml Balance 1346 ml 4196 ml Intake Oral 200 ml 200 ml IV Total 1546 ml 5096 ml Output Urine Total 400 ml 500 ml Estimated Blood Loss 600 ml # Bowel Movements 0 0 Coles urine output: 400ml last 8hr. shift General: Alert, Oriented X3, Cooperative, No Acute Distress Neck: Supple Lungs: Normal Air Movement Abdomen: Other (soft, mildly distended, appropriately tender, no masses, no rebound or guarding) SURGICAL WOUND : Wound Location/Description Dressings clean/dry/intact Extremities: Other (+SCD boots) Neuro: Normal Speech, Sensation Intact Catheters: Urethral 2 Way Coles (in place, draining clear yellow urine) Result Diagram: 12/01/16 0450 12/01/16 0450 Assessment & Plan Impression POD #1, s/p L laparoscopic radical nephrectomy, afebrile, hemodynamically stable , with good urine output, with labs this AM showing Hct mildly decreased to 33.0 and normal Cr Problems: Plan Continue clears Continue IV ROLL HAND, PO pain meds PRN Continue IVF Continue Coles to straight drainage until patient is ambulatory Encourage incentive spirometry 10x/hr. and cough and deep breathing Q2h while awake Encourage OOB to chair and ambulation with assistance. Physical therapy consultation requested. Check labs (CBC, BMP) in AM Recommend holding any blood-thinning medications (including ASA) Hospitalist consultation appreciated Urologist on-call Dr. Underwood to follow over the weekend VTE Prophylaxis: SCDs Resuscitation Status: CPR: Attempt Resuscitation Duglas Elder MD Dec 01, 2016 07:19
[2016-12-01] MEDS: MYRBETRIC 50 MG PO SCH (08:30)
[2016-12-01] MEDS ORDERED: MeTOProlol XL 50 mg ER24 Tablet PO SCH ×2 (08:30)
[2016-12-01] MEDS: Morphine PCA 1 mg/mL 30 mL Inj IV PRN (10:30)
--- NOTE | 2016-12-01 14:15 | NUR ---
Activity/Mentation DISEASE CASE MANAGER RN in room when RN entered. Patient was sitting in chair and unable to tell either of us how she got there. She did state the DISEASE CASE MANAGER RN helped her, but the DISEASE CASE MANAGER RN, Yvette, denied this. DISEASE CASE MANAGER RN and RN helped patient back into bed, 2 assist with walker, tolerated okay. States her L knee hurt and she does not understand why. Patient instructed that she is not allowed to get out of bed without help. Patient able to state where she is and what is going on. [place] bed alarm is on, lights turned on in room. Call light given to patient.
--- NOTE | 2016-12-01 15:04 | OP ---
[address] [address] OPERATIVE REPORT PATIENT: DHAVAL RAMOS : 1940 MR#: [id number] ADMIT: 11/30/2016 JOB ID: [id number] DATE OF SURGERY: 11/30/2016 PREOPERATIVE DIAGNOSIS(ES): Left renal mass. POSTOPERATIVE DIAGNOSIS(ES): Left renal mass. PROCEDURES: Left laparoscopic radical nephrectomy (modifier 22). SURGEON: Duglas Elder MD LABORATORY SECRETARY: Cortney Nieves MD, ELIZABETH Ricks. ANESTHESIA: General endotracheal anesthesia. IV FLUIDS: 3300 mL. ESTIMATED BLOOD LOSS: 300 mL. URINE OUTPUT: 200 mL. SPECIMENS: Left kidney and left adrenal gland. DRAINS: A 16-Nepali Coles catheter to straight drainage. COMPLICATIONS: None. CONDITION: Stable. FINDINGS: No evidence for gross extension of tumor outside of left kidney was seen. Left laparoscopic radical nephrectomy (including left adrenalectomy) was performed. Of note, dissection was very difficult secondary to a large amount of significant adhesions from prior abdominal surgeries. INDICATIONS: The patient is a 76-year-old female with a left renal mass, with CT scan on October 26, 2016, showing a 70 mm enhancing left upper pole renal mass highly suspicious for renal cell carcinoma. The patient now presents for left laparoscopic radical nephrectomy. Of note, the skilled assistance of Dr. Cortney Nieves and ELIZABETH Ricks was necessary for the successful completion of this case. Dr. Nieves for was essential for proper visualization during the case and ELIZABETH Alvarez was essential for proper visualization and for wound closure during the case. Of note, ELIZABETH Alvarez assisted me during the initial and the latter portion of the case, and Dr. Nieves assisted me during the mid portion of the case. DESCRIPTION OF PROCEDURE: The patient was brought to the operating room and placed supine on the operating room table. The patient was given Ancef and Levaquin IV antibiotics. Sequential compression device boots were placed. The patient underwent general endotracheal anesthesia. A 16-Nepali Coles catheter was placed through the urethra and into the bladder under sterile conditions without difficulty and Coles catheter was placed to straight drainage. The patient had orogastric tube placement by anesthesia. The patient was placed in modified lateral decubitus position, left side up. All pressure points were padded. The patient was secured to the table with 3-inch cloth tape. The patient's left flank and left abdomen were prepped and draped in standard surgical fashion. A Tracey trocar placement was performed. A 12 mm incision in the left abdomen at the level of the umbilicus, just lateral to the edge of the rectus muscle, was made through the skin sharply. The incision was carried through subcutaneous tissue using Bovie electrocautery. The fascia was identified and incised sharply then 0-Vicryl sutures were placed, one on each side of the fascia, as holding sutures. The muscle layer was split. The peritoneum was identified and grasped with clamps, one on each side, and the peritoneum was carefully incised sharply using Metzenbaum scissors. Access to the peritoneum was obtained. A blunt-tip Tracey trocar was placed into the peritoneal cavity. The abdomen was insufflated with 15 mm hg carbon dioxide. Four-quadrant insufflation was seen. The abdomen was inspected and there was no evidence of injury to the abdominal contents. At this port a 12 mm trocar was placed in the left abdomen, lateral to the first trocar. A 12 mm trocar was placed in the left upper quadrant, superior to the first trocar. With all trocars placed, and insufflation to 15 mmHg carbon dioxide obtained, the table was airplaned towards the surgeon. Of note, a large amount of significant adhesions from prior abdominal surgeries was seen and dissection thus was very difficult. The adhesions were taken down using a combination of blunt and sharp dissection. Of note, a significant amount of time was needed to take down the adhesions during the case. Of note, a modifier 22 is being applied to this case secondary to the large amount of significant adhesions from prior abdominal surgeries seen and needing to be taken down, secondary to the dissection being very difficult as above and secondary to this case taking approximately 50% longer than usual secondary to the above factors, and thus a modifier 22 is being applied to this case. An incision was made in the white line of Toldt to reflect the descending colon medially to provide adequate visualization of the anterior surface of Gerota fascia, and of note secondary to the adhesions difficulty was encountered in identifying adhesions. Significant adhesions were found as above. Thus, incision was made in the white line of Toldt to reflect the descending colon medially to provide adequate visualization of the anterior surface of Gerota fascia. The white line of Toldt was incised from the level of the iliac vessels inferiorly, extending above the spleen superiorly. The ileocolic ligament was incised to allow the spleen to the fall medially, along with the pancreas; medial retraction of the colon revealed colorenal attachments that were divided to complete retraction of the colon medially. Dissection was performed using Surgiwand, Thunderbeat, blunt-tipped grasper, [place] grasper, and right angle dissector during the case. The perineal attachments in between the spleen and the upper pole were taken down. The aorta was identified, as well as the left renal vein and the left gonadal vein. The left gonadal vein was ligated using Weck Hem-o-Loc clips and divided. The colon was thus freed. The gonadal vessels were swept laterally and the ureter was identified. The ureter was located posterior to the posterior descending gonadal vein. All attachments to the lower pole were dissected off anteriorly from the psoas muscle and divided. Again, the left gonadal vein was ligated using Hem-o-Loc clips and divided sharply using the Thunderbeat. With the lower pole attachments divided, the medial and posterior dissection was begun. The ureter was elevated and traced proximally to identify the left renal hilum. A grasper was placed beneath Gerota fascia in the lower pole to lift the specimen superior laterally. The inferior and posterior sidewall attachments were divided. Traction was placed on the kidney, both laterally and anteriorly. All attachments between the medial aspect of the kidney and the aorta were taken down. The left renal vein was identified and dissected out from the surrounding structures with continued traction of the kidney. The left renal artery was able to be identified and dissected free from the surrounding structures. The left renal artery and left renal vein were ligated and divided using an endovascular AISLINN stapler. The left ureter was ligated using Hem-o-Loc clips and divided sharply. This was done inferior to the lower pole of the kidney. Attention was now paid to performing left adrenalectomy. The decision was made to perform left adrenalectomy in conjunction with the left radical nephrectomy secondary to the left upper pole renal mass being close to and adjacent to the left adrenal gland. Attention was now paid to dissecting off the upper pole of the kidney. The decision was made to perform left adrenalectomy together in conjunction with the left radical nephrectomy secondary to the left upper pole renal mass being close to and adjacent to the left adrenal gland. Thus the left adrenal gland was excised, together with the left kidney. A left adrenalectomy was performed. With inferior traction on the kidney, the plane superior to the left adrenal gland and upper pole of the left kidney was established and released with the help of the Thunderbeat instrument. Again, with inferior traction on the kidney, the plane between Gerota's fascia which contained the left adrenal gland and the left kidney, and the muscle, was dissected caudally as the upper pole was lifted. This was done using the Thunderbeat instrument. Thus the left adrenal gland was excised together with the left kidney and a left adrenalectomy was performed in addition to the left radical nephrectomy. Upper and lateral attachments to Gerota's fascia had been incised. The only remaining attachments were laterally, which were taken down using the Thunderbeat instrument and Surgiwand. Of note, the left ureter had already been ligated and divided inferior to the lower pole of the kidney as previously described. The entire kidney was now free. There was no evidence of bleeding from the hilum, renal bed, or adrenal bed. The pneumoperitoneum was brought down the 5 mmHg carbon dioxide. Valsalva maneuver was performed three times and there was no evidence of bleeding seen. Of note, prior to visual inspection of the peritoneum for bleeding the patient had been repositioned in the full flank position via airplaning the table and no evidence of bleeding was seen. Thus, left laparoscopic radical nephrectomy and left adrenalectomy were performed. 0-Vicryl sutures were placed into the fascia of the 12 mm trocar sites to close the fascia with the assistance of the Tee Adele device. Surgicel and FloSeal hemostatic agents were applied to the left renal bed and hilum. The initial Tracey trocar was removed and an EndoCatch II bag was placed through the trocar site. The specimen was placed into the EndoCatch II bag. All instruments were removed and all trocars were removed under direct visualization. No bleeding was seen. The table was then rotated back into supine position. The initial Tracey trocar incision was extended laterally to allow extraction of the specimen. Using Bovie electrocautery this incision was carried down through the subcutaneous tissue and fascia. The muscle was split and the peritoneum was opened using Bovie electrocautery with my finger protecting the specimen and the Endo Catch II bag. The specimen and the Endo Catch II bag were brought out through the incision. The specimen was sent to pathology for permanent specimen. The fascia of this incision was closed using #1 PDS sutures in a running fashion, with one suture from each end starting from the corner and to the middle, with two PDS sutures used in a running fashion. Devon's fascia was closed using a running 3-0 Vicryl suture. The skin for each of the incisions was closed using 4-0 Monocryl sutures in a running subcuticular fashion. Prior to closure of the skin 0.25% plain Marcaine was administered subcutaneously for local anesthesia. The skin was cleaned and dried. Sterile dressings were applied. The patient was placed in supine position. Coles catheter was left to straight drainage. The patient was awakened from general anesthesia, extubated, and transferred to the recovery room in stable condition. The patient tolerated the procedure well.
--- NOTE | 2016-12-01 20:51 | PCM.PNMED ---
Subjective Date of Service Dec 01, 2016 Subjective Left knee pain. Abdominal/kidney pain control, no chest pain, no dyspnea, no nausea or vomiting Exam Vital Signs Vital Sign - Last Date Time Temp Pulse Resp B/P Pulse Ox O2 Delivery O2 Flow Rate FiO2 12/01/16 20:28 16 94 12/01/16 20:28 Supplement Oxygen 12/01/16 16:45 101 2.00 12/01/16 12:53 37.2 128/74 Intake and Output 11/30/16 11/30/16 12/01/16 Cumulative From/Thru 15:00 23:00 07:00 11/29/16 10:36 - 12/01/16 06:33 Intake Total 3400 ml 150 ml 1746 ml 5296 ml Output Total 300 ml 400 ml 400 ml 1100 ml Balance 3100 ml -250 ml 1346 ml 4196 ml Intake Oral 0 ml 200 ml 200 ml IV Total 3400 ml 150 ml 1546 ml 5096 ml Output Urine Total 100 ml 400 ml 500 ml Estimated Blood Loss 300 ml 300 ml 600 ml # Bowel Movements 0 0 Exam Gen.- A+ O 3 no apparent distress. Obese female Head-atraumatic/normocephalic Eyes- open conjunctiva clear, pupils equal, nonicteric Mouth- no deformity of lips ENT- ears no deformity, nose no deformity Neck- supple/trach midline CVS- RRR no murmur or gallop Lungs- CTA GI-diminished bowel sounds, generalized tenderness Musc- moving 4 no obvious deformity Left knee swollen and extremely tender to touch to the point where I was afraid to even manipulated Neuro- cranial nerves II through XII intact to gross examination, nonfocal Skin- warm and dry, no rashes/lesions/wounds noted Psych- pleasant and appropriate, Lab and Diagnostics Result Diagram: 12/01/16 04512/01/16 0450 Assessment & Plan 76-year-old female with multiple comorbidities is being admitted to [facility] post left nephrectomy for 7 cm left renal mass. 11/30 12/01. Patient late in the day she is having terrible left knee pain and swelling. She admits to history of gout and the severity suggests this is gout. We will get x-ray left knee as per her request, we will start colchicine this evening check uric acid level in the morning and discuss if she still having symptoms whether NSAID might not be appropriate such as Toradol. #Laparoscopic nephrectomy and adrenalectomy of left renal mass; 11/30 -Patient underwent nephrectomy by Dr. Elder 11/30 no evidence of additional invasion per surgical note -Pain control with GIRL FRIDAY -Await pathology #PVD -Hold Cilostazol tonight; restart tomorrow? Will try and discuss with urology #HTN/lipids--Continue metoprolol; if persistent hypertension consider starting lisinopril, statin #Hypothyroidism-Continued levothyroxine 100 g #Nicotine dependence; present admission; ongoing -From what I can tell, the patient is a current smoker -Nicotine patch declined by patient 11/30 but ordered #?EtOH abuse; no evidence as of 12/01 of any withdrawal -Difficult to get a sense of alcohol use as patient is somnolent post-op -CT evidence of cirrhosis -Watch for signs of withdrawal and initiate CIWA if present #COPD; -Patient has not wheezing, and saturating well on room air -Continue to follow and use duonebs if appropriate #DJD--Continue home pain regimen once GIRL FRIDAY is dc'd #Depression/anxiety; -Continue venlafaxine #Urinary incontinence;-Continue Myrbetriq GI Prophylaxis: H2 nicolas VTE Prophylaxis: SCDs VTE Mechanical Devices: Intermittant Pneumatic CD Resuscitation Status: CPR: Attempt Resuscitation Javier Padron MD Dec 01, 2016 20:51
[2016-12-02] VITALS (9 sets, daily range): BP systolic 114–133; BP diastolic 71–82; PULSE 78–96; RESP 18–19; O2SAT 91–95
[2016-12-02] MEDS: Morphine PCA 1 mg/mL 30 mL Inj IV PRN (02:08)
--- NOTE | 2016-12-02 04:25 | NUR ---
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 When asked about her pain, she replies "crappy," and says "my knee has really been bugging me." Ice has been given--ineffective. Tylenol given--ineffective. Colchicine newly ordered, pt reports it ineffective. [place] ordered, but will not give r/t concurrent PILOT PLANT RESEARCH TECHNICIAN orders. Pt does not request more pain medications and states "I'm just dealing with it I guess." Pt appears to be in less pain when distracting her with conversation. Will continue to monitor.
[2016-12-02 06:30] LABS: Mean Corpuscular Hemoglobin 33.1 pg (27.0-35.0); Mean Corpuscular Volume 101.3 fL (81-100)
[2016-12-02] MEDS: 0.9% Sodium Chloride 1,000 ML IV SCH ×3 (06:37→18:30)
--- NOTE | 2016-12-02 07:39 | DRSVH ---
PROCEDURE: X-RAY LEFT KNEE, THREE VIEWS ([id number]) INDICATIONS: 76 year-old female with left knee pain and swelling. TECHNIQUE: 3 views of the knee were acquired. COMPARISON: [facility], , BILATERAL KNEE 3VW, 12/15/2014, 15:15. FINDINGS: Bones: No fractures or dislocations. Left knee joint degeneration is again noted, with joint narrow ing and peripheral osteophyte formation. No suspicious bony lesions. Soft tissues: There is large knee joint effusion, along with patchy intra-articular calcification and chondrocalcinosis. IMPRESSION: 1. Moderate left knee joint degeneration as before. 2. Large knee joint effusion containing patchy intra-articular calcification as before, suggesting un derlying gouty arthritis. Dictated by: Carmelo Delarosa M.D. on 12/02/2016 at 7:34 Approved by: Carmelo Delarosa M.D. on 12/02/2016 at 7:37
[2016-12-02] MEDS: MYRBETRIC 50 MG PO SCH (08:16)
--- NOTE | 2016-12-02 09:25 | PROG NOTE ---
[address] [address] PROGRESS NOTE PATIENT: DHAVAL RAMOS : 1940 MR#: [id number] ADMIT: 11/30/2016 JOB ID: [id number] DATE: SUBJECTIVE: Postop day two, laparoscopic left nephrectomy. OBJECTIVE: Vital signs: Stable. Afebrile. The patient is confused and complaining of left knee pain secondary to gout. Her colchicine is helping, as far as the gout pain is concerned, but is lasting long enough. I am going to try her on Toradol. 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 She was up in her chair yesterday, so I will discontinue her Coles catheter. LABORATORY VALUES: Hematocrit stable at 40.3. Creatinine stable at 0.81. ASSESSMENT/PLAN: Postoperative day two, left nephrectomy, complicated by active gout, and confusion, likely secondary to narcotics. We will discontinue her Coles catheter and increase her diet.
[2016-12-02] MEDS: Ketorolac 15 mg/mL Inj IVPUSH PRN ×2 (09:51→18:09)
[2016-12-02] MEDS: Venlafaxine XR 75 mg ER24 Capsule PO SCH (09:51)
--- NOTE | 2016-12-02 09:58 | NUR ---
Evaluation completed. Please go to "Notes" then click on "Assessments and Notes" (bottom left corner of screen). Then select appropriate discipline tab on top of screen.
--- NOTE | 2016-12-02 11:13 | NUR ---
Social Work- Initial Assessment Data: See Initial Assessment. Pt is a 76 year old female admitted 11/30/16 for left renal mass per H&P. Pt has gout in her left knee. Pt is POD 2 from nephrectomy. Pt's insurance is [employer]. Pt's PCP is Veronica Arshad PA-C. SW met with pt at bedside regarding discharge plan, SW role explained. Pt alert and oriented x3. Pt was on TREE DRILLER pump, disoriented and drowsy but this has been discontinued and PO meds have been initiated. Pt resides in [place] with her spouse where pt has been independent at baseline. Pt reports she has a cane and walker at home, a walk in shower, and grab bars in the bathtub. Pt has a history of [facility] approximately 1 year ago. Pt has no SNF history. Pt has no LTC or VA benefits. Pt's DPOA is at home, GUEST SERVICE SUPERVISOR requested that pt bring in copy. PT has seen pt, pt has been max A in bed mobility and max A 2 person transfers. Pt anticipates that her will be able to care for her at home and is anticipating a progression in mobility. SW will continue to follow, pt anticipated to discharge home with to transport via POV. Assessment: Pt who is independent at baseline and will likely progress with PT Plan: Pt is POD 1. Pt is independent at baseline and will likely progress with PT. SW will continue to follow, pt anticipated to discharge home with to transport via POV. AMANDA Sanz Addendum: 12/02/16 at 1130 by MIMI BERRY Amended: Links added.
--- NOTE | 2016-12-02 12:41 | PCM.PNMED ---
Subjective Date of Service Dec 02, 2016 Subjective Patient still having terrible left knee pain. Abdominal pain is nonexistent. No chest pain, dyspnea or nausea or vomiting. Exam Vital Signs Vital Sign - Last Date Time Temp Pulse Resp B/P Pulse Ox O2 Delivery O2 Flow Rate FiO2 12/02/16 10:03 18 94 12/02/16 08:17 Supplement Oxygen 12/02/16 08:09 96 133/82 12/02/16 05:27 36.6 2.00 Intake and Output 12/01/16 12/01/16 12/02/16 Cumulative From/Thru 15:00 23:00 07:00 11/29/16 10:36 - 12/02/16 05:26 Intake Total 835 ml 200 ml 450 ml 6781 ml Output Total 400 ml 500 ml 2000 ml Balance 835 ml -200 ml -50 ml 4781 ml Intake Oral 200 ml 450 ml 850 ml IV Total 835 ml 5931 ml Output Urine Total 400 ml 500 ml 1400 ml Estimated Blood Loss 600 ml # Bowel Movements 0 0 0 Exam Gen.- A+ O 3 no apparent distress. Obese female Head-atraumatic/normocephalic Eyes- open conjunctiva clear, pupils equal, nonicteric Mouth- no deformity of lips ENT- ears no deformity, nose no deformity Neck- supple/trach midline CVS- RRR no murmur or gallop Lungs- CTA GI-diminished bowel sounds, generalized tenderness Musc- moving 4 no obvious deformity Left knee swollen and extremely tender to touch Neuro- cranial nerves II through XII intact to gross examination, nonfocal Skin- warm and dry, no rashes/lesions/wounds noted Psych- pleasant and appropriate, Lab and Diagnostics Result Diagram: 12/02/1660412/02/16604 Assessment & Plan 76-year-old female with multiple comorbidities is being admitted to [facility] post left nephrectomy for 7 cm left renal mass. 11/30 12/01. Patient late in the day she is having terrible left knee pain and swelling. She admits to history of gout and the severity suggests this is gout. We will get x-ray left knee as per her request, we will start colchicine this evening check uric acid level in the morning and discuss if she still having symptoms whether NSAID might not be appropriate such as Toradol. 12/02 knee is still painful, QUALITY CONTROL CHEMIST stopped by urology, we will try Toradol for anemia and postoperative pain she is a bit confused from the narcotics, hopefully this is not a manifestation of alcohol withdrawal. BP meds are being resumed. Hg has dropped we will monitor and follow up in a.m. Patient seems to be progressing nicely. #Acute blood loss anemia- Hg 10.6 12/01, 9.8 12/02 continue to monitor #Left knee gout-patient starting colchicine 12/01 in the PM, Toradol approved by urology 12/02. Uric acid 3.9 12/02 -Low uric acid consider pseudogout for now I am not going to do anything besides symptomatic treatment. Not pursuing L knee aspiration at this time. #Laparoscopic nephrectomy and adrenalectomy of left renal mass; 11/30 -Patient underwent nephrectomy by Dr. Elder 11/30 no evidence of additional invasion per surgical note -Pain control with QUALITY CONTROL CHEMIST DC'd 12/02 by urology patient too confused -Await pathology #PVD -Hold Cilostazol, patient does not like this medication anyway and can live without it 12/02 #HTN/lipids--Continue metoprolol; BP up, lisinopril started 12/01, statin. BP controlled 12/02 #Hypothyroidism-Continued levothyroxine 100 g #Nicotine dependence; present admission; ongoing -From what I can tell, the patient is a current smoker -Nicotine patch declined by patient 11/30 but ordered #?EtOH abuse; no evidence as of 12/01 of any withdrawal -CT evidence of cirrhosis -Watch for signs of withdrawal and initiate CIWA if present #COPD; -Patient has not wheezing, and saturating well on room air -Continue to follow and use duonebs if appropriate #DJD--Continue home pain regimen once QUALITY CONTROL CHEMIST is dc'd #Depression/anxiety; -Continue venlafaxine #Urinary incontinence;-Continue Myrbetriq GI Prophylaxis: H2 nicolas VTE Prophylaxis: SCDs VTE Mechanical Devices: Intermittant Pneumatic CD Resuscitation Status: CPR: Attempt Resuscitation Javier Padron MD Dec 02, 2016 12:41
--- NOTE | 2016-12-02 14:41 | NUR ---
TATIANNA signed. Nancy Man MACHINE FEATHEREDGER AND REDUCER
--- NOTE | 2016-12-02 15:50 | NUR ---
[facility] CIWA score 12. Awaiting pharmacy to verify order for diazepam. Will continue to monitor patient. Addendum: 12/02/16 at 1907 by NATALIE KEN RN 10mg diazepam given. CIWA score 2. Call light and tray table within reach. Will continue to monitor patient hourly.
--- NOTE | 2016-12-02 20:38 | NUR ---
No Void Coles removed on day shift @ 1045 per report. Patient has been unable to void since removal. Has NS @ 125 ml/hr running. Bladder scan this shift= [address] Abbott, via telephone conversation, and order received to keep bladder scanning until she reaches around 300 ml and then perform an I&O. Addendum: 12/03/16 at 0300 by LEONORA REYNOLDS RN Bladder scan showing varying amounts of urine in bladder > 260 ml. I&O performed with a total of 500 ml of giuseppe urine out.
[2016-12-02] MEDS: HYDROcodone-APAP 10-325 mg PO PRN (22:38)
[2016-12-03] MEDS: Ketorolac 15 mg/mL Inj IVPUSH PRN ×4 (00:15→23:15)
[2016-12-03] MEDS: 0.9% Sodium Chloride 1,000 ML IV SCH ×3 (02:42→19:32)
[2016-12-03] MEDS: HYDROcodone-APAP 10-325 mg PO PRN (02:47)
[2016-12-03 05:07] VITALS: BP 137/73; PULSE 90; RESP 16; O2SAT 92
[2016-12-03 06:14] LABS: BASOPHILS % (AUTO) 0.1 % (0-3); EOSINOPHILS % (AUTO) 0.8 % (0-5); MONOCYTES % (AUTO) 12.7 % (4-12); Mean Corpuscular Volume 102.6 fL (81-100); Platelet Count 102 bil/L (150-400)
[2016-12-03] MEDS: MYRBETRIC 50 MG PO SCH (08:30)
[2016-12-03] MEDS: Multivit-Miner-Folic Acid-Iron Tablet PO SCH (08:47)
[2016-12-03] MEDS: Venlafaxine XR 75 mg ER24 Capsule PO SCH (08:48)
[2016-12-03 08:54] VITALS: BP 135/78; PULSE 97
--- NOTE | 2016-12-03 09:59 | PROG NOTE ---
[address] [address] PROGRESS NOTE PATIENT: DHAVAL RAMOS : 1940 MR#: [id number] ADMIT: 11/30/2016 JOB ID: [id number] DATE: 12/03/2016 SUBJECTIVE: Postop day three, left laparoscopic nephrectomy. The patient is afebrile. Vital signs stable. Urine output is good. Coles catheter was removed yesterday. The patient was unable to void. Her inter-stem was queried is set somewhat higher than is normal for her. I have reduced the stimulation level to 4.2 which is her normal. If she is unable to void at this setting it can be reduced further. PHYSICAL EXAMINATION: Abdomen is soft, nontender. The incision is nicely healed. She was unable to sleep much last night, so I will order some Ambien. PLAN: 1. Increase ambulation. 2. Increase diet. 3. Discharge home within the next 1-2 days.
[2016-12-03] MEDS: Thiamine Inj 100 MG in 0.9% Sodium Chloride 100 ML IV SCH (10:55)
--- NOTE | 2016-12-03 12:35 | PCM.PNMED ---
Subjective Date of Service Dec 03, 2016 Subjective Patient complaining about not getting Ambien last night. She was started on CIWA protocol and still was withdrawing with 10 mg of diazepam, I did not point this out to her. Daughter informed us that she takes Soma, zolpidem and alcohol almost nightly. She probably has been going through withdrawal. Her left knee pain is virtually gone. No complaints of chest pain, dyspnea, nausea or vomiting. Exam Vital Signs Vital Sign - Last Date Time Temp Pulse Resp B/P Pulse Ox O2 Delivery O2 Flow Rate FiO2 12/03/16 10:17 Room Air 12/03/16 08:54 97 135/78 12/03/16 05:07 36.8 16 92 2.00 Intake and Output 12/02/16 12/02/16 12/03/16 Cumulative From/Thru 15:00 23:00 07:00 11/29/16 10:36 - 12/03/16 06:20 Intake Total 1908 ml 1163 ml 9852 ml Output Total 550 ml 500 ml 3050 ml Balance 1358 ml 663 ml 6802 ml Intake Oral 400 ml 300 ml 1550 ml IV Total 1508 ml 863 ml 8302 ml Output Urine Total 550 ml 500 ml 2450 ml Estimated Blood Loss 600 ml # Bowel Movements 0 0 Exam Gen.- A+ O 3 no apparent distress. Obese female Head-atraumatic/normocephalic Eyes- open conjunctiva clear, pupils equal, nonicteric Mouth- no deformity of lips ENT- ears no deformity, nose no deformity Neck- supple/trach midline CVS- RRR no murmur or gallop Lungs-expiratory wheeze right greater than left, no accessory muscle usage no other evidence of dyspnea. GI-diminished bowel sounds, generalized tenderness Musc- moving 4 no obvious deformity Left knee swollen and extremely tender to touch Neuro- cranial nerves II through XII intact to gross examination, nonfocal Skin- warm and dry, no rashes/lesions/wounds noted Psych-irritable Lab and Diagnostics Result Diagram: 12/03/1634 12/03/16533 Assessment & Plan 76-year-old female with multiple comorbidities is being admitted [facility] post left nephrectomy for 7 cm left renal mass. 11/30 12/01. Patient late in the day she is having terrible left knee pain and swelling. She admits to history of gout and the severity suggests this is gout. We will get x-ray left knee as per her request, we will start colchicine this evening check uric acid level in the morning and discuss if she still having symptoms whether NSAID might not be appropriate such as Toradol. 12/02 knee is still painful, BUSINESS MANAGER stopped by urology, we will try Toradol for anemia and postoperative pain she is a bit confused from the narcotics, hopefully this is not a manifestation of alcohol withdrawal. BP meds are being resumed. Hg has dropped we will monitor and follow up in a.m. Patient seems to be progressing nicely. 12/03 patient seemed delirious yesterday probably going through alcohol withdrawal. She does not have a good recollection or insight into what happened but she is very upset she did not get her Ambien. Her knee is better. She is starting to move them by assist. Hg down continue to monitor, check anemia panel/stool. Expectation from urology probable discharge 12/05ish . #Acute metabolic encephalopathy /EtOH abuse, CIWA 12/02- -CT evidence of cirrhosis #Acute blood loss anemia- Hg 10.6 12/01, 9.8 12/02, 9.0 12/03 continue to monitor- check anemia panel/stool #Left knee gout-colchicine 12/01-, Toradol approved by urology 12/02-. Uric acid 3.9 12/02 -Pain resolved #Laparoscopic nephrectomy and adrenalectomy of left renal mass; 11/30 -Patient underwent nephrectomy by Dr. Elder 11/30 no evidence of additional invasion per surgical note -Pain control with BUSINESS MANAGER DC'd 12/02 by urology patient too confused -Await pathology #PVD -Hold Cilostazol, patient does not like this medication anyway and can live without it 12/02 #HTN/lipids--Continue metoprolol; BP up, lisinopril started 12/01, statin. BP controlled 12/03 #Hypothyroidism-Continued levothyroxine 100 g #Nicotine dependence; present admission; ongoing -From what I can tell, the patient is a current smoker -Nicotine patch declined by patient 11/30 but ordered #?EtOH abuse; no evidence as of 12/01 of any withdrawal -CT evidence of cirrhosis -Watch for signs of withdrawal and initiate CIWA if present #COPD; -Patient has not wheezing, and saturating well on room air -Continue to follow and use duonebs if appropriate #DJD--Continue home pain regimen once BUSINESS MANAGER is dc'd #Depression/anxiety; -Continue venlafaxine #Urinary incontinence;-Continue Myrbetriq GI Prophylaxis: H2 nicolas, Proton Pump Inhibitor VTE Prophylaxis: SCDs VTE Mechanical Devices: Intermittant Pneumatic CD Resuscitation Status: CPR: Attempt Resuscitation Javier Padron MD Dec 03, 2016 12:35
[2016-12-03] MEDS ORDERED: Pantoprazole 40 mg ER24 Tablet PO ONE (12:40)
[2016-12-03 12:50] VITALS: BP 147/82; PULSE 88; RESP 16; O2SAT 90
[2016-12-03 14:16] LABS: Unsaturated Iron Binding 132.7 ug/dL
[2016-12-03] MEDS ORDERED: Albuterol-Ipratropium 3 mL Inhalation Solution NEB SCH (16:00)
--- NOTE | 2016-12-03 16:05 | NUR ---
Respiratory Pt refused medication, stated "I'll take care of it myself". Asked twice both times Pt denied Tx's, RN present at time of approach.
[2016-12-03] MEDS ORDERED: Albuterol-Ipratropium 3 mL Inhalation Solution NEB PRN (16:30)
--- NOTE | 2016-12-03 17:52 | NUR ---
Activity Pt put on BSC at 0920 and unable to void. Bladder stimulator turned on by urology. Pt able to void 300ml at 1100 and post residual bladder scan was 21ml. Pt has had multiple other voids during shift and shows no s/s of retention. Pt's pain well controlled with IV Toradol. Pt has had some confusion during shift, thinking that a man outside the room was her and that "people are whispering outside my room. CIWA scoring between 4-5. Medications not given because pt got more upset when discussed. Curtain open to hallway and pt has been more appropriate and not had any hallucinations. Pt was OOB once on own w/o calling for help, cristel alarm now in place and pt reminded to use call light. Bed in low, call light in reach, continue q1 hour monitoring.
[2016-12-03 20:00] VITALS: BP 138/77; PULSE 98; RESP 18; O2SAT 93
--- NOTE | 2016-12-04 02:40 | NUR ---
Mentation/IV Pulled Out On initial assessment, patient was alert and oriented x2, however, asking inappropriate questions and hallucinating in regards to objects in room. Hallucinations continued for several hours. CIWA score 8 and 4. Patient pulled out IV line. Did not use call light . 2 RNs tried to start IV with no success. Called ED for restart. Nola in place. VSS. Call light within reach. Care continues.
[2016-12-04 03:34] VITALS: BP 167/89; PULSE 88; RESP 16; O2SAT 95
[2016-12-04 05:40] LABS: BASOPHILS % (AUTO) 0.1 % (0-3); EOSINOPHILS % (AUTO) 1.1 % (0-5); MONOCYTES % (AUTO) 15.2 % (4-12); Mean Corpuscular Hemoglobin 32.8 pg (27.0-35.0); Mean Corpuscular Volume 100.3 fL (81-100); Platelet Count 141 bil/L (150-400)
[2016-12-04] MEDS: 0.9% Sodium Chloride 1,000 ML IV SCH ×2 (08:24→16:24)
[2016-12-04 08:30] VITALS: BP 180/81; PULSE 60; RESP 18; O2SAT 99
[2016-12-04] MEDS: Thiamine Inj 100 MG in 0.9% Sodium Chloride 100 ML IV SCH (08:30)
[2016-12-04] MEDS: MYRBETRIC 50 MG PO SCH (08:30)
[2016-12-04] MEDS: Venlafaxine XR 75 mg ER24 Capsule PO SCH (09:15)
[2016-12-04] MEDS: HYDROcodone-APAP 10-325 mg PO PRN (09:15)
[2016-12-04] MEDS: Pantoprazole 40 mg ER24 Tablet PO SCH (09:16)
[2016-12-04] MEDS: Multivit-Miner-Folic Acid-Iron Tablet PO SCH (09:16)
--- NOTE | 2016-12-04 09:39 | PCM.PNMED ---
Subjective Date of Service Dec 04, 2016 Subjective pt was hallucinating, pulled out iv last night, was on CIWA protocol this AM pt was AAOx3, denied KAHN, dizziness, nausea, reported that pt had aspiration episodes while eating breakfast, noted pt is having coughing spell, no sputum, denied SOB Exam Vital Signs Vital Sign - Last Date Time Temp Pulse Resp B/P Pulse Ox O2 Delivery O2 Flow Rate FiO2 12/04/16 08:30 36.9 60 18 180/81 99 Room Air 12/03/16 05:07 2.00 Intake and Output 12/03/16 12/03/16 12/04/16 Cumulative From/Thru 15:00 23:00 07:00 11/29/16 10:36 - 12/04/16 06:21 Intake Total 200 ml 2782 ml 91233 ml Output Total 500 ml 1137 ml 4687 ml Balance -300 ml 1645 ml 8147 ml Intake Oral 200 ml 400 ml 2150 ml IV Total 2382 ml 72196 ml Output Urine Total 500 ml 1137 ml 4087 ml Estimated Blood Loss 600 ml # Voids 2 2 # Bowel Movements 1 1 2 Exam left lower lung field, mild crackles, no wheezing IVs and Medications Medications Reviewed: Medications were reviewed in detail Lab and Diagnostics Result Diagram: 12/04/16 0455 12/04/16 0455 Assessment & Plan 76-year-old female with multiple comorbidities is being admitted [facility] post left nephrectomy for 7 cm left renal mass. 11/30. During the post op course , pt developed left knee gout, probable etoh withdrawal. acute blood loss anemia acute, active #Acute metabolic encephalopathy /EtOH abuse, [facility] 12/02- CT evidence of cirrhosis , possible delirium in post-op course -stable this AM, will avoid any benzo, minimize opioid for today -neurocheck q4h, avoid chemical/physical restraints, #Laparoscopic nephrectomy and adrenalectomy of left renal mass; 11/30 -Patient underwent nephrectomy by Dr. Elder 11/30 no evidence of additional invasion per surgical note -Pain control with WASH HOUSE SUPERVISOR DC'd 12/02 by urology patient too confused. currently norco prn and ketorolac prn -Await pathology -continue general diet, daily PT #HTN/lipids. uncontrolled in the setting of pain, agitation, possible delirium, -Continue metoprolol; newly started lisinopril started 12/01, statin. #probable aspiration episode, on 12/04 -continue monitoring SpO2, get CXR today chronic, stable, resolved #Acute blood loss anemia- h/h stable, continue to monitor #Left knee gout-colchicine 12/01-, Toradol approved by urology 12/02-. Uric acid 3.9 12/02, continue colchicine on d/c #PVD -Hold Cilostazol, patient does not like this medication anyway and can live without it 12/02 #Hypothyroidism-Continued levothyroxine 100 g #Nicotine dependence; present admission; suspected smoker, offered Nicotine patch but declined by patient 11/30 #COPD; -Patient has not wheezing, and saturating well on room air, Continue to follow and use duonebs if appropriate #DJD--Continue home pain regimen once WASH HOUSE SUPERVISOR is dc'd #Depression/anxiety; -Continue venlafaxine #Urinary incontinence;-Continue Myrbetriq dispo: likely 1-2 more days, GI Prophylaxis: H2 nicolas, Proton Pump Inhibitor VTE Prophylaxis: SCDs VTE Mechanical Devices: Intermittant Pneumatic CD Resuscitation Status: CPR: Attempt Resuscitation Time spent 35min Lamont Carver MD Dec 04, 2016 09:39 #Urinary incontinence;-Continue Myrbetriq GI Prophylaxis: H2 nicolas, Proton Pump Inhibitor VTE Prophylaxis: SCDs VTE Mechanical Devices: Intermittant Pneumatic CD Resuscitation Status: CPR: Attempt Resuscitation Time spent 35min Lamont Carver MD Dec 04, 2016 09:39 Lamont Carver MD Dec 04, 2016 09:39
--- NOTE | 2016-12-04 10:30 | NUR ---
NUTRITION ASSESSMENT Assess: 76 YO F admitted for left renal mass. Pt s/p laparoscopic nephrectomy and adrenalectomy of left renal mass 11/30. Diet advanced to general with poor PO intake. Pt has had poor PO intake X 4 days. Speech therapy eval ordered. Per notes, pt having hallucination last night; pt on CIWA protocol. PMHX: Left renal mass, tobacco use, HTN, hypothyroid, scoliosis, basal cell carcinoma, chronic UTI, HLD, COPD, DJD, PAD. DIET: General. PO intake refusal-sips. LABS: Reviewed. Ca 8.3, Alb 3.0 MEDICATIONS: Reviewed. MVI, Colace, thiamine, Reglan. GI: 1 BM 12/04. SKIN: No issues noted. ANTHROPOMETRICS: WT: 92.5 kg, BMI 33.9 kg/m2, Admit wt: 90.4 kg, IBW: 56.8 kg. ESTIMATED NEEDS: BMI Calories: 6144-8866 kcal/day (20-22 kcal/kg BW) Protein: 68-85 g/day (1.2-1.5 g/kg IBW) NUTRITION DIAGNOSIS: 1) Inadequate oral intake related to decreased ability to consume sufficient energy as evidenced by poor PO intake X 4 days. INTERVENTION: 1) Will add nutrition supplements s/p speech therapy evaluation d/t poor PO intake. MONITOR/EVALUATE: PO intake, diet tolerance, labs, ST Eval, GI/nutrition status. Follow per high nutrition risk guidelines.
[2016-12-04 13:27] VITALS: BP 159/83; PULSE 89; RESP 18; O2SAT 95
--- NOTE | 2016-12-04 13:50 | DRSVH ---
PROCEDURE: X-RAY CHEST ONE VIEW, PORTABLE ([id number]) INDICATIONS: cough TECHNIQUE: One view of the chest was acquired. COMPARISON: [facility], CR, XR CHEST 1VW (PORTABLE), 02/17/2016, 13:26. FINDINGS: Surgical changes and devices: None. Lungs and pleura: Shallow inspiration causes by basilar atelectasis likely than right. Superimposed l eft basilar infection is possible. No definite pleural effusions. Mediastinum: Mediastinal contours appear normal. Heart size is normal. Bones and chest wall: No suspicious bony lesions. Overlying soft tissues appear unremarkable. Part ially visualized thoracolumbar fixation. IMPRESSION: Shallow inspiration causes bibasilar atelectasis left greater than right. Superimposed le ft basilar infection is possible. Dictated by: Berto Peralta M.D. on 12/04/2016 at 13:47 Approved by: Berto Peralta M.D. on 12/04/2016 at 13:48
--- NOTE | 2016-12-04 14:20 | NUR ---
TATIANNA Signed @ 12PM
--- NOTE | 2016-12-04 14:34 | NUR ---
Evaluation completed. Please go to "Notes" then click on "Assessments and Notes" (bottom left corner of screen). Then select appropriate discipline tab on top of screen.
--- NOTE | 2016-12-04 16:48 | PATH ---
SURGICAL PATHOLOGY Attending Physician:Duglas Elder MD CASE STATUS: Signed Out PATIENT NAME: DAHVAL RAMOS PID: [id number] : 1940 DATE COLLECTED:11/30/2016 00:00 SPECIMEN: Kidney, Radical Nephrectomy for Nontumor CLINICAL HISTORY: LEFT RENAL MASS 1). LEFT KIDNEY AND LEFT ADRENAL GLAND, OUT AT 14:42 FINAL DIAGNOSIS: 1.LEFT KIDNEY AND ADRENAL GLAND, RADICAL NEPHRECTOMY: SPECIMEN: KIDNEY, URETER, ADRENAL GLAND SPECIMEN LATERALITY: LEFT PROCEDURE: RADICAL NEPHRECTOMY TUMOR SITE: UPPER POLE TUMOR SIZE: GREATEST DIMENSION: 5.8 CM ADDITIONAL DIMENSIONS: 5.8 X 5.5 CM TUMOR FOCALITY: UNIFOCAL HISTOLOGIC TYPE: CLEAR CELL RENAL CELL CARCINOMA SARCOMATOID FEATURES: NOT IDENTIFIED RHABDOID FEATURES: NOT IDENTIFIED HISTOLOGIC GRADE (WHO/ISUP GRADE): G3 TUMOR NECROSIS: NOT IDENTIFIED ANATOMIC EXTENT OF TUMOR: TUMOR LIMITED TO KIDNEY MARGINS: UNINVOLVED BY INVASIVE CARCINOMA LYMPHOVASCULAR INVASION: PRESENT REGIONAL LYMPH NODES: NO LYMPH NODES FOUND PATHOLOGIC STAGE CLASSIFICATION (pTNM, AJCC 7th EDITION): PRIMARY TUMOR: pT1b REGIONAL LYMPH NODES: pNX PATHOLOGIC FINDINGS IN NONNEOPLASTIC KIDNEY: NONE IDENTIFIED ADRENAL GLAND: NO PATHOLOGIC ALTERATIONS. ICD10 C64.2 NOTE: As part of a routine quality tester, Dr. Avila Craig has also reviewed this case and agrees with the diagnosis. GROSS DESCRIPTION: The specimen is received in formalin, labeled with the patient's name, sublabeled as left kidney and left adrenal gland, and consists of a kidney (12.8 x 6.5 x 5.8 cm) with an attached ureter (length-4.5 cm, diameter-0.3 cm), renal vein (length-1.3 cm, diameter-1.3 cm), renal artery (length-2.5 cm, diameter-0.5 cm) and perinephric adipose tissue (up to 5.4 cm in depth. The adrenal gland (8.3 grams, 5.0 x 2.5 x 1.6 cm) is also attached. The renal parenchyma is red-brown and contains a card-white, rubbery, solid, cystic, well-circumscribed mass (5.8 x 5.8 x 5.5 cm) involving the superior polyp. The mass is 4.5 cm from the ureteric, 2.3 cm from the venous, and 3.5 cm from the arterial resection margins. The mass pushes outward on the capsule beyond the normal renal contour but does not appear to extend through into the perinephric adipose tissue. The mass also pushes into the renal sinus but does not appear to invade the sinus. The mass does not involve the pelvis. The remaining parenchyma has normal renal architecture with no other nodules, masses or lesions identified. The adrenal gland is yellow-orange with normal architecture and is otherwise unremarkable. Section code: (A) ureter, vein, artery resection margins; (B-G) mass, residential sales representative; (H) normal renal parenchyma; (I) adrenal gland, serially sectioned, residential sales representative. ([id number]) MICRO DESCRIPTION: Sections of the mass show sheets of neoplastic cells with a pleomorphic, enlarged nuclei, nucleoli visible at 100x magnification, and clear cytoplasm. No extension through or beyond the capsule is identified. Please see diagnostic field for additional details. ICD-9 CODES: CPT CODES: 1: 12046 Electronically Signed Out Rosenda Pacheco MD [facility] [address], [place] [address] Technical component performed at [facility], [address] [place] [address] Ave[address], [place], [address]
--- NOTE | 2016-12-04 16:58 | NUR ---
IV/Confusion Patient A&O to self but very confused. Pulled out IV this AM. notified and stated she does not need IV access and not to place additional PIV. Patient pleasant and cooperative with care.
--- NOTE | 2016-12-04 17:18 | PCM.PNSURG ---
Subjective Date of Service: Dec 04, 2016 Date of Service: Dec 04, 2016 Subjective: Patient reports abdominal incisional pain and L knee pain (secondary to gout)( pain relieved by PO Swoope), tolerating some regular diet, no nausea or vomiting , passing flatus, had 2 BM's yesterday, voiding without difficulty, has been ambulating with walker in hallway. Patient had straight cath for 500ml yesterday early AM, subsequently was able to void 300ml and had bladder scan PVR 21ml yesterday. Of note, patient was seen this morning. Objective Vital Sign- Last 8 Hours Date Time Temp Pulse Resp B/P Pulse Ox O2 Delivery O2 Flow Rate FiO2 12/04/16 13:53 Room Air 12/04/16 13:27 36.9 89 18 159/83 95 Room Air Intake and Output- Last 8 Hour 12/04/16 Cumulative From/Thru 07:00 11/29/16 10:36 - 12/04/16 06:21 Intake Total 2782 ml 56797 ml Output Total 1137 ml 4687 ml Balance 1645 ml 8147 ml Intake Oral 400 ml 2150 ml IV Total 2382 ml 34053 ml Output Urine Total 1137 ml 4087 ml Estimated Blood Loss 600 ml # Voids 2 # Bowel Movements 1 2 Voided urine output: 500/1137ml last 2 hr. shifts General: Alert, Oriented X3, Cooperative, No Acute Distress Neck: Supple Lungs: Normal Air Movement Abdomen: Other (soft, mildly distended, appropriately tender, no masses, no rebound or guarding) SURGICAL WOUND : Wound Location/Description Dressings removed. Incisions clean/dry/intact, healing well, Steri-strips in place. Neuro: Normal Speech, Sensation Intact Catheters: None Result Diagram: 12/04/16 0455 12/04/16 0455 Assessment & Plan Impression POD #4, s/p L laparoscopic radical nephrectomy, afebrile, hemodynamically stable , with good urine output, with labs this AM showing Hct mildly increased to 29.4 and normal Cr (0.80), tolerating PO Problems: Plan Continue diet (heart healthy, soft, bland) Continue PO Swoope PRN Record all voided urine output Encourage incentive spirometry 10x/hr. and cough and deep breathing Q2h while awake Encourage OOB to chair and ambulation with assistance. Continue physical therapy Check labs (CBC, BMP) in AM Recommend continuing to hold any blood-thinning medications (including ASA) Hospitalist follow-up appreciated Case discussed with hospitalist Dr. Carver VTE Prophylaxis: SCDs Resuscitation Status: CPR: Attempt Resuscitation Duglas Elder MD Dec 04, 2016 17:18
[2016-12-04 20:10] VITALS: BP 160/84; PULSE 103; RESP 18; O2SAT 92
--- NOTE | 2016-12-05 04:16 | NUR ---
Activity On initial assessment, patient answering questions appropriately. Brief changed as patient urinated without using call light for bsc or bedpan. Patient refuse Colace. VSS. Call light within reach. Care continues.
[2016-12-05 05:27] VITALS: BP 170/83; PULSE 77; RESP 18; O2SAT 95
[2016-12-05 06:00] LABS: Mean Corpuscular Hemoglobin 32.2 pg (27.0-35.0); Mean Corpuscular Volume 96.4 fL (81-100)
[2016-12-05] MEDS: Thiamine Inj 100 MG in 0.9% Sodium Chloride 100 ML IV SCH (08:30)
[2016-12-05] MEDS: MYRBETRIC 50 MG PO SCH (08:30)
[2016-12-05] MEDS ORDERED: Potassium Chloride 20 mEq SR Tablet PO ONE (09:40)
[2016-12-05] MEDS ORDERED: COLC0.6T52 PO (09:42)
[2016-12-05] MEDS ORDERED: HYDR-3090 PO (09:42)
[2016-12-05] MEDS ORDERED: DOCU-41 PO (09:43)
--- NOTE | 2016-12-05 10:56 | PCM.DIMED ---
Lamont Carver MD 12/05/16 1056: Discharge Instructions Date of Service Dec 05, 2016 Dates of Hospitalization Nov 30, 2016 at 17:43 Discharge Diagnosis Discharge Diagnosis left laparoscopic radical nephrectomy by Acute gout arthritis on Left knee Medication Instructions Additional med instructions Please continue to take colchicine until your symptoms improve on your knee You can take Vicodin for pain as needed every 4-6hours, Please take Colace with pain medicine to prevent constipation Activity Discharge Activity: Outpatient Physical Therapy Patient Instructions Patient Instructions You were hospitalized after elective surgery of removal of left kidney. You tolerated surgery well, but developed gout attack on left knee, which is now controlled with medicine. Please note that outpatient PT was recommended to increase your mobility Follow-up plan Please follow-up with urology clinic as scheduled Please also follow up with your primary doctor in 2 weeks Follow-up Provider: Duglas Elder MD Follow-up with PCP in: 2 weeks Provider: Veronica Arshad Follow-up in: 2 weeks Duglas Elder MD 12/05/16 1243: Discharge Instructions Discharge Diagnosis Discharge Diagnosis left renal mass Diet Discharge Diet: Other (Soft, bland, heart healthy diet) Activity Discharge Activity: Other (No strenuous exercise/activity, moderate or heavy lifting (more than 10 lbs.), or abdominal straining for 4 weeks after surgery) Call your provider Call your provider for: Fever or Chills, Shortness of breath, Chest pain, Vomitting, Other (Pain uncontrolled by pain medication) Patient Instructions Patient Instructions You may shower. No bath/pool/spa for 4 weeks after surgery. Leave Steri-strips in place. Follow-up with Dr. Elder in 1 week for post-op visit Lamont Carver MD Dec 05, 2016 10:56 Duglas Elder MD Dec 05, 2016 12:43
[2016-12-05] MEDS: Pantoprazole 40 mg ER24 Tablet PO SCH (11:25)
[2016-12-05] MEDS: Venlafaxine XR 75 mg ER24 Capsule PO SCH (11:26)
[2016-12-05] MEDS: Multivit-Miner-Folic Acid-Iron Tablet PO SCH (11:26)
[2016-12-05] MEDS: HYDROcodone-APAP 10-325 mg PO PRN (11:53)
--- NOTE | 2016-12-05 12:22 | NUR ---
Social Work: Readiness for Discharge D: EMR reviewed. Pt is on day 5 of hospitalization. Per MD in AM multi-disciplinary rounds, pt is medically stable and will discharge today. Pt states that her will be able to care for her at home and is anticipating a progression in mobility. Pt to discharge home with to transport via POV today. SW will continue to follow. A: Pt who is independent at baseline. P: Pt states that her will be able to care for her at home and is anticipating a progression in mobility. Pt to discharge home with to transport via POV today. SW will continue to follow. AMANDA Chirinos
--- NOTE | 2016-12-05 12:39 | PCM.PNSURG ---
Subjective Date of Service: Dec 05, 2016 Date of Service: Dec 05, 2016 Subjective: Patient reports improved abdominal incisional pain and improved L knee pain ( secondary to gout)(pain relieved by PO Brooks), tolerating regular diet, no nausea or vomiting, passing flatus, having BM's, voiding without difficulty, has been ambulating with walker in hallway. Objective Vital Sign- Last 8 Hours Date Time Temp Pulse Resp B/P Pulse Ox O2 Delivery O2 Flow Rate FiO2 12/05/16 12:24 Room Air 12/05/16 05:27 36.3 77 18 170/83 95 Room Air Intake and Output- Last 8 Hour 12/05/16 Cumulative From/Thru 07:00 11/29/16 10:36 - 12/05/16 05:27 Intake Total 0 ml 61966 ml Output Total 931 ml 6728 ml Balance -931 ml 6843 ml Intake Oral 0 ml 2887 ml IV Total 68644 ml Output Urine Total 931 ml 6128 ml Estimated Blood Loss 600 ml # Voids 3 # Bowel Movements 1 4 Voided urine output: 1110/931ml last 2 8hr. shifts General: Alert, Oriented X3, Cooperative, No Acute Distress Neck: Supple Lungs: Normal Air Movement Abdomen: Other (soft, mildly distended, appropriately tender, no masses, no rebound or guarding) SURGICAL WOUND : Wound Location/Description Incisions clean/dry/intact, healing well, Steri-strips in place. Neuro: Normal Speech, Sensation Intact Catheters: None Result Diagram: 12/05/16 0515 12/05/16 0515 Assessment & Plan Impression POD #5, s/p L laparoscopic radical nephrectomy, afebrile, hemodynamically stable , with good urine output, with labs this AM showing stable Hct and normal Cr ( 0.73), tolerating regular diet, ambulating, with pain well-controlled on PO pain meds, doing well post-op Problems: Plan Patient is being discharged home today. Discharge meds: Brooks, Colace. Patient will RTC with me in 1 week for post-op visit. Discharge instructions discussed with patient. Hospitalist Dr. Carver's follow-up and care appreciated VTE Prophylaxis: SCDs Resuscitation Status: CPR: Attempt Resuscitation copies to: Veronica Arshad PAC; Lamont Carver MD,Duglas Hidalgo MD Dec 05, 2016 12:39 Case discussed with hospitalist Dr. Carver VTE Prophylaxis: SCDs Resuscitation Status: CPR: Attempt Resuscitation Duglas Elder MD Dec 05, 2016 12:39
--- NOTE | 2016-12-05 18:08 | NUR ---
Discharge Patient discharged home with spouse. Patient was given verbal and written home care instructions and agreed to understanding them. Patient denied any questions when asked. Patient will follow up with surgeon as directed . Prescriptions given. Patient taken to car via wheelchair.
--- NOTE | 2016-12-06 13:39 | PCM.DC.MED ---
Discharge Summary Date of Service Dec 05, 2016 Dates of Hospitalization Date of Hospital Admission Nov 30, 2016 at 17:43 Date of Discharge: Dec 05, 2016 Providers: Admitting Physician: Duglas Elder MD Primary Care Physician: Veronica Arshad Attending Physician: Duglas Elder MD Diagnosis at Time of Discharge Diagnosis at Time of Discharge acute dx Laparoscopic nephrectomy and adrenalectomy of left renal mass; 11/30 acute encephalopathy in post-operative course, hyperactive delirium or ETOH withdrawal acute gouty arthritis on Left knee Acute blood loss anemia uncontrolled HTN probable aspiration episode chronic dx #HLD #PVD #Hypothyroidism #Nicotine dependence; #COPD #DJD #Depression/anxiety #Urinary incontinence Consultations Urology Procedures XRay, CTs & MRIs PROCEDURE: X-RAY LEFT KNEE, THREE VIEWS ([id number]) INDICATIONS: 76 year-old female with left knee pain and swelling. TECHNIQUE: 3 views of the knee were acquired. COMPARISON: [facility], , BILATERAL KNEE 3VW, 12/15/2014, 15:15. FINDINGS: Bones: No fractures or dislocations. Left knee joint degeneration is again noted, with joint narrowing and peripheral osteophyte formation. No suspicious bony lesions. Soft tissues: There is large knee joint effusion, along with patchy intra- articular calcification and chondrocalcinosis. IMPRESSION: 1. Moderate left knee joint degeneration as before. 2. Large knee joint effusion containing patchy intra-articular calcification as before, suggesting underlying gouty arthritis. Dictated by: Carmelo Delarosa M.D. on 12/02/2016 at 7:34 Approved by: Carmelo Delarosa M.D. on 12/02/2016 at 7:37 Brief History HPI obtained by Dr. Elder 11/30 76-year-old female with history hypertension, hypoactive thyroid, chronic UTI, urge incontinence and left renal mass who underwent laparoscopic left nephrectomy and adrenalectomy today (11/30/16). There were no perisurgical complications noted by Dr. Elder. Suggested history of COPD and cirrhosis. Medicine was consulted for medical management while the patient is here in the hospital. The patient has been seen by Dr. Elder for 7 cm mass on the superior pole of the left kidney with no evidence of no metastases as noted on October 26 CT scan. Patient has a history of peripheral vascular disease and smoking, especially wishes to quit smoking as recently as 10/31/16. At that time the patient on Wellbutrin but did not start it. Patient apparently also has a significant history of alcohol use and CT in October suggested cirrhosis. Patient was unable to give history due to somnolence from medications and postop. Patient was transported to PACU in stable condition was currently being transported to the floor. Patient is a 5L of LR. Patient also had a UA which is sent for culture. Blood work pending Hospital Course 76-year-old female with multiple comorbidities is being admitted to the [facility] post left nephrectomy for 7 cm left renal mass. 11/30. During the post op course , pt developed left knee gout, probable etoh withdrawal. acute blood loss anemia acute dx #Laparoscopic nephrectomy and adrenalectomy of left renal mass; 11/30. Patient underwent nephrectomy by Dr. Elder 11/30 no evidence of additional invasion per surgical note. no post-op surgical CIx developed, discharged in stable condition. #Left knee gout developed during post-op course, started on colchicin, symptoms were controlled on d/c. plan to continue until resolution of sx. #Acute metabolic encephalopathy pt developed hallucination, agitation in post-op course, likely sx of withdrawals from possible EtOH abuse or post-op delirium, started on CIWA protocol. Symptoms resolved rapidly, didn't show any signs of DTs, no seizure. pt remained neurologically intact, back to baseline MS upon d.c #Acute blood loss anemia- h/h stable, #HTN/lipids. uncontrolled in the setting of pain, agitation, possible delirium, continued metoprolol; newly started lisinopril 12/01, statin. 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 #Depression/anxiety; -Continue venlafaxine #Urinary incontinence;-Continue Myrbetriq Exam Vital Signs (Last) Date Time Temp Pulse Resp B/P Pulse Ox O2 Delivery O2 Flow Rate FiO2 12/05/16 12:24 Room Air 12/05/16 05:27 36.3 77 18 170/83 95 12/03/16 05:07 2.00 Exam NAD, comfortably laying down on the bed no JVD, MMM, no LAD RRR, nl s1, s2 no mrg CTAB, no w,c S,ND,NT,normoactive BS+ warm, no edema, pulses 2/2 Test 11/30/16 10:11 12/01/16 04:50 12/02/16 06:05 12/03/16 05:34 Urine Color Yellow (YELLOW) Urine Appearance Hazy (CLEAR,HAZY) Urine pH 6.5 (5.0-8.0) Urine Specific [place] 1.015 (1.003-1.035) Urine Protein Negativemg/dL (NEG,TRACE) Urine Glucose (UA) Negativemg/dL (NEGATIVE) Urine Ketones Negativemg/dL (NEGATIVE) Urine Occult Blood Negative (NEGATIVE) Urine Nitrite Negative (NEGATIVE) Urine Bilirubin Negative (NEGATIVE) Urine Urobilinogen Normalmg/dL (NORMAL) Urine Leukocyte Esterase Negative (NEGATIVE) Urine RBC 0-2/hpf (0-2) Urine WBC 0-5/hpf (0-5) Urine Epithelial Cells Occasional/hpf (NONE-MOD) Urine Crystals None seen (NONE SEEN) Urine Bacteria Moderate/hpf (NONE-FEW) Urine Hyaline Casts None/lpf (NONE) Urine Granular Casts None seen (NONE SEEN) Urine Waxy Casts None seen (NONE SEEN) Urine Red Blood Cell Casts None seen (NONE SEEN) Urine White Blood Cell Casts None seen (NONE SEEN) Urine Mucus Present (None Seen) Urine Trichomonas None seen (NONE SEEN) Urine Yeast None (NONE SEEN) Urinalysis Comment None Urine Culture Reflexed Indicated Phosphorus Level 3.1mg/dL (2.5-4.9) Magnesium Level 1.8mg/dL (1.6-2.6) Triglycerides Level 136mg/dL (0-149) Cholesterol Level 153mg/dL (100-199) LDL Cholesterol, Calculated 84.800mg/dL (0-99) VLDL Cholesterol 27.200mg/dL HDL Cholesterol 41mg/dL (>39) Cholesterol/HDL Ratio 3.73 (0.0-4.4) Procalcitonin 0.12ng/mL (0.00-0.08) Thyroid Stimulating Hormone (TSH) 2.210uIU/mL (0.450-4.500) Uric Acid 3.9mg/dL (2.6-7.2) Total Iron Binding Capacity 149ug/dL (250-450) Percent Iron Saturation 11%sat (15-50) Unsaturated Iron Binding 132.7ug/dL Vitamin B12 Level 413pg/mL (211-946) Test 12/04/16 04:55 12/05/16 05:15 Neutrophils (%) (Auto) 70.0% (40-74) Lymphocytes (%) (Auto) 12.8% (14-46) Monocytes (%) (Auto) 15.2% (4-12) Eosinophils (%) (Auto) 1.1% (0-5) Basophils (%) (Auto) 0.1% (0-3) Reticulocyte Count,Calculated 2.8% (0.6-2.6) Iron Level 19ug/dL (35-150) Ferritin 453ng/mL (13-150) Total Bilirubin 0.6mg/dL (0.0-1.2) Aspartate Amino Transf (AST/SGOT) 45U/L (0-50) Alanine Aminotransferase (ALT/SGPT) 14U/L (0-32) Alkaline Phosphatase 162U/L (25-165) Total Protein 5.4g/dL (6.4-8.4) Albumin 3.0g/dL (3.4-5.0) White Blood Count 8.3th/mm3 (3.8-10.1) Red Blood Count 3.07mil/mm3 (3.90-5.20) Hemoglobin 9.9g/dL (12.0-15.6) Hematocrit 29.6% (35.0-46.0) Mean Corpuscular Volume 96.4fL (81-100) Mean Corpuscular Hemoglobin 32.2pg (27.0-35.0) Mean Corpuscular Hemoglobin Concent 33.4% (32.0-37.0) Red Cell Distribution Width 13.0% (12.3-15.4) Platelet Count 180bil/L (150-400) Sodium Level 138mEq/L (134-144) Potassium Level 3.4mEq/L (3.5-5.2) Chloride Level 101mEq/L (97-108) Carbon Dioxide Level 23mmol/L (18-29) Blood Urea Nitrogen 13mg/dL (8-27) Creatinine 0.73mg/dL (0.57-1.00) Estimat Glomerular Filtration Rate 111mL/min (>59) Glucose Level 111mg/dL (60-99) Calcium Level 8.4mg/dL (8.5-10.1) Discharge Medications Discharge Medications Aspirin (Aspirin) 81 Mg Tablet 81 MG PO DAILY (Reported) Atorvastatin (Lipitor) 20 Mg Tablet 20 MG PO DAILY (Reported) Benazepril (Benazepril) 20 Mg Tablet 10 MG PO DAILY (Reported) Carisoprodol (Soma) 350 Mg Tablet 2 TAB PO BID (Reported) Colchicine (Colcrys) 0.6 Mg Tablet 0.6 MG PO BID Prescribed by: LAMONT MCCARTHY MD Levothyroxine (Levothyroxine) 100 Mcg Tablet 100 MCG PO DAILY (Reported) Metoprolol Succinate ER (Metoprolol Succinate ER) 50 Mg Tab.er.24h 50 MG PO QAM (Reported) Metoprolol Succinate ER (Metoprolol Succinate ER) 50 Mg Tab.er.24h 25 MG PO QPM (Reported) Mirabegron ER (Myrbetriq) 50 Mg Tablet 50 MG PO DAILY (Reported) As needed Diphenoxylate/Atropine 2.5-0.025 mg (Lomotil 2.5-0.025 mg) 1 Each Tablet 1 TABLET PO PRN For Diarrhea or Loose Stool (Reported) Docusate Sodium (Colace) 100 Mg Capsule 100 MG PO DAILY PRN PRN For Constipation Prescribed by: LAMONT MCCARTHY MD Hydrocodone-Acetaminophen 5-300 mg (Hydrocodone-Acetaminophen 5-300 mg) 1 Each Tablet 1 TABLET PO Q4H PRN PRN For Pain Prescribed by: LAMONT MCCARTHY MD Zolpidem (Ambien) 10 Mg Tablet 10 MG PO HS PRN PRN For Insomnia (Reported) Additional med instructions Please continue to take colchicine until your symptoms improve on your knee You can take Vicodin for pain as needed every 4-6hours, Please take Colace with pain medicine to prevent constipation Followup Plan Disposition: Home Follow-up plan Please follow-up with urology clinic as scheduled Please also follow up with your primary doctor in 2 weeks Discharge Diet: Other (Soft, bland, heart healthy diet) Discharge Activity: Other (No strenuous exercise/activity, moderate or heavy lifting (more than 10 lbs.), or abdominal straining for 4 weeks after surgery) Patient Instructions You may shower. No bath/pool/spa for 4 weeks after surgery. Leave Steri-strips in place. Follow-up with Dr. Elder in 1 week for post-op visit Follow-up Provider: Duglas Elder MD Provider: Veronica Arshad PAC Follow-up in: 2 weeks Time spent 65 minutes Lamont Mccarthy MD Dec 05, 2016 17:29
== END 2016-12-05 13:22 | disposition home or self-care (01) | DRG 660 ==
LOC: SAS 05:51 → OSC 17:43
PROVIDERS: ADMIT Urology; ATTEND Urology
PROC: 0GT24ZZ Resection of Left Adrenal Gland, Percutaneous Endoscopic Approach (ICD-10-PCS; 2016-11-30)
PROC: 4A033R1 Measurement of Arterial Saturation, Peripheral, Percutaneous Approach (ICD-10-PCS; 2016-11-30)
PROC: 0TT14ZZ Resection of Left Kidney, Percutaneous Endoscopic Approach (ICD-10-PCS; principal; 2016-11-30 07:30)
DX: N28.89 Other specified disorders of kidney and ureter (principal); D62 Acute posthemorrhagic anemia; F10.231 Alcohol dependence with withdrawal delirium; K66.0 Peritoneal adhesions (postprocedural) (postinfection); I10 Essential (primary) hypertension; F17.210 Nicotine dependence, cigarettes, uncomplicated; Z87.440 Personal history of urinary (tract) infections; E03.9 Hypothyroidism, unspecified; E78.5 Hyperlipidemia, unspecified; J44.9 Chronic obstructive pulmonary disease, unspecified; I73.9 Peripheral vascular disease, unspecified; F41.8 Other specified anxiety disorders; M10.9 Gout, unspecified